=== PATIENT | female | born 1945 | race Caucasian/White ===

== ENCOUNTER 2018-03-04 17:16 | Inpatient (IN) ==
[2018-03-04] MEDS ORDERED: Morphine Sulfate Inj 2 MG/ML Vial IV.PUSH ONE (17:44)
--- NOTE | 2018-03-04 17:49 | ED ---
HPI General Chief Complaint: Fall Stated Complaint: Fall Time Seen by Provider: 03/04/18 17:41 Source: patient Mode of arrival: ambulatory Limitations: no limitations History of Present Illness HPI Narrative: 72-year-old female with PMH of HTN, DM, asthma, CAD status post stenting on Xarelto presents to the ED via EMS for evaluation of 5/10 right hip and elbow pain. Pain is sharp, throbbing, worsened by attempted R OM. No alleviating factors reported. Onset just before arrival after the patient slipped in a puddle of water at a public shower/ pool and fell to the concrete. She denies striking her head or loss of consciousness. She has been minimally ambulatory on the leg since the accident. She denies numbness, tingling, weakness of either extremity. She endorses limitations to range of motion of the hip and elbow secondary to pain. She denies previous injury to either area. The patient is visiting from [place], states that she plans to stay 6 more days. EMS stabilized the elbow but no analgesia was administered prior to arrival. Related Data Home Medications Medication Instructions Recorded Confirmed albuterol sulfate [ProAir HFA] 2 puff INHALATION Q4-6H PRN 03/04/18 03/04/18 aspirin [Aspirin Low Dose] 81 mg PO DAILY 03/04/18 03/04/18 budesonide-formoterol [Symbicort] 2 puff INHALATION BID 03/04/18 03/04/18 diltiazem HCl 120 mg PO DAILY 03/04/18 03/04/18 dulaglutide [Trulicity] 0.75 mg SUB-Q QWEEK 03/04/18 03/04/18 ergocalciferol (vitamin D2) 50,000 unit PO QWEEK 03/04/18 03/04/18 [Vitamin D2] esomeprazole magnesium [Nexium] 20 mg PO DAILY 03/04/18 03/04/18 furosemide [Lasix] 80 mg PO BID 03/04/18 03/04/18 insulin lispro protamin-lispro 65 unit SUB-Q BID 03/04/18 03/04/18 [Humalog Mix 75-25 KwikPen] isosorbide mononitrate 30 mg PO DAILY 03/04/18 03/04/18 losartan 25 mg PO DAILY 08/20/18 08/20/18 multivitamin 1 tab PO DAILY 03/04/18 03/04/18 rivaroxaban [Xarelto] 15 mg PO BID 03/04/18 03/04/18 rosuvastatin [Crestor] 10 mg PO DAILY 03/04/18 03/04/18 Allergies Allergy/AdvReac Type Severity Reaction Status Date / Time lisinopril [From Zestril] Allergy Intermediate Anaphylaxis Verified 03/04/18 17: 25 metoprolol [From Lopressor] Allergy Intermediate Anaphylaxis Verified 03/04/18 17:25 Review of Systems ROS: all other systems reviewed are negative PMFSH History History Provided By: Patient Medical History Medical History HBP (high blood pressure) (Acute) High cholesterol (Acute) History of high cholesterol (Acute) Hx of diabetes mellitus (Acute) Surgical History Surgical History Hx of hand surgery (Acute) Hx of heart bypass surgery (Acute) Hx of heart surgery (Acute) Social History Social History Substance History: No History of Abuse Second Hand Smoke Exposure: No Smoking Status: Never smoker How Often Do You Have a Drink Containing Alcohol: Never Recent Travel in [facility] within the Last 8 Weeks: No Recent Out of Country Travel within the Last 8 Weeks: No Exam Narrative Exam Narrative: GENERAL: Well-developed, well-nourished white female in no acute distress. SKIN: Focused skin assessment warm/dry. HEAD: Atraumatic. Normocephalic. EYES: Pupils equal and round. No scleral icterus. No injection or drainage. ENT: No nasal bleeding or discharge. Mucous membranes pink and moist. NECK: Trachea midline. No JVD. CARDIOVASCULAR: Regular rate and rhythm. No murmur appreciated. RESPIRATORY: No accessory muscle use. Clear to auscultation. Breath sounds equal bilaterally. GASTROINTESTINAL: Abdomen soft, non-tender, nondistended. Hepatic and splenic margins not palpable. MUSCULOSKELETAL: No obvious deformities. No clubbing. No cyanosis. No edema. FOCUSED RIGHT UPPER EXTREMITY EXAM: 2+ radial pulse. No tenderness to palpation of the length of the proximal humerus. Arm is held in 90 flexion in a cardboard splint. Patient is able to wiggle the fingers, Refill less than 2 seconds. Neurovascularly intact distally. FOCUSED RIGHT LOWER EXTREMITY EXAM: 2+ DP pulse. Leg is held in slight external rotation. No length discrepancy noted. Patient is able to wiggle the toes and flex the ankle. Pain elicited with internal and external rotation of the hip. Pain elicited with palpation of the anterior lateral right hip. No groin pain on palpation. Neurovascularly intact distally. NEUROLOGICAL: Awake and alert. No obvious cranial nerve deficits. Motor grossly within normal limits. Normal speech. PSYCHIATRIC: Appropriate mood and affect; insight and judgment normal. Course Initial Documented Vital Signs Temperature 97.7 F 03/04/18 17:35 Pulse Rate 76 03/04/18 17:35 Respiratory Rate 16 03/04/18 17:35 Blood Pressure 156/70 H 03/04/18 17:35 Pulse Oximetry 99 03/04/18 17:35 Last Documented Vital Signs Temperature 97.7 F 03/04/18 17:35 Pulse Rate 76 03/04/18 17:35 Respiratory Rate 16 03/04/18 17:35 Blood Pressure 156/70 H 03/04/18 17:35 Pulse Oximetry 99 03/04/18 17:35 Medical Decision Making MDM Narrative Medical decision making narrative: 72-year-old female with PMH of HTN, DM, CAD status post stenting, on Xarelto presents the ED for evaluation of right shoulder and hip pain after fall onto concrete at a public pool. Vitals reviewed. Physical exam reveals visible deformity of the wrist, neurovascularly intact distally. Patient also has tenderness to palpation of the right anterolateral hip without evidence of length discrepancy and only mild external rotation. X-rays reveals comminuted, impacted fracture of the right wrist. Patient was placed in a splint by the [employer]. X-ray of the hip reveals no evidence of fracture, CT of the hip reveals evidence of right inferior pubic rami fracture. The patient was unable to bear weight when we attempted to ambulate her. I spoke with TREVOR Cuevas construction checker for . He request that the patient be made NPO at midnight. They will discuss surgery with the patient in the AM. I spoke with Dr. Gorman who agrees to accept the patient to the medicine service. Please see medicine and ortho notes for disposition. Medical Screen Exam Complete: Yes Emergency Medical Condition: Yes Differential Diagnosis Differential Diagnosis: Fall from standing versus humeral fracture versus versus hip fracture versus pelvic fracture versus dislocation versus contusion versus other Lab Data Result diagrams: 03/04/18 18:40 03/04/18 18:40 Lab Results 08/20/18 08/20/18 Range/Units 18:40 18:40 WBC 8.1 (4.0-11.0) th/mm3 RBC 3.03 L (4.00-5.30) mil/mm3 Hgb 9.4 L (11.6-15.3) gm/dL Hct 28.7 L (35.0-46.0) % MCV 94.7 (80.0-100.0) fL MCH 31.1 (27.0-34.0) pg MCHC 32.8 (32.0-36.0) % RDW 15.9 (11.6-17.2) % Plt Count 205 (150-450) th/mm3 MPV 7.7 (7.0-11.0) fL Neut % (Auto) 73.3 H (16.0-70.0) % Lymph % (Auto) 17.9 (9.0-44.0) % [place] % (Auto) 7.0 (0.0-8.0) % Eos % (Auto) 1.5 (0.0-4.0) % Baso % (Auto) 0.3 (0.0-2.0) % Neut # (Auto) 5.9 (1.8-7.7) th/mm3 Lymph # (Auto) 1.4 (1.0-4.8) th/mm3 [place] # (Auto) 0.6 (0.0-0.9) th/mm3 Eos # (Auto) 0.1 (0.0-0.4) th/mm3 Baso # (Auto) 0.0 (0.0-0.2) th/mm3 WBC Differential . Differential Comment Auto diff final Sodium 137 (136-145) meq/L Potassium 5.1 (3.5-5.1) meq/L Chloride 102 (98-107) meq/L Carbon Dioxide 25.7 (21.0-32.0) meq/L Anion Gap 9 (5-15) meq/L BUN 23 H (7-18) mg/dL Creatinine 1.23 H (0.50-1.00) mg/dL Estimated GFR 43 L (>89) mL/min Random Glucose 254 H (74-106) mg/dL Calcium 8.5 (8.5-10.1) mg/dL Imaging Data Radiologist's impression: Elbow X-Ray 03/04/18 00:00 CONCLUSION: No evidence of recent bony injury. Hip X-Ray 03/04/18 17:41 CONCLUSION: No evidence of recent bony injury. Wrist X-Ray 03/04/18 18:06 CONCLUSION: Comminuted and angulated distal radial fracture. There is also a displaced fracture of the ulnar styloid. Hip CT 03/04/18 18:43 CONCLUSION: 1. Buckle, 1 cortex fracture of the right inferior pubic ramus. 2. No evidence of fracture in the right hip or right femoral neck. Discharge Plan Discharge Disposition Patient Disposition: 30 Still Patient Discharge Details Diagnosis: Closed fracture of right wrist, Closed fracture of right inferior pubic ramus Physicians Team ED Provider: Bucky Painting ED Midlevel Provider: Antonette Doan Primary Care Provider: UNKNOWN, Rxs /Orders / Referrals /Forms Prescriptions: No Action multivitamin Tablet 1 tab PO DAILY RF: 0 isosorbide mononitrate 30 mg Tablet Extended Release 24 Hr 30 mg PO DAILY RF: 0 aspirin [Aspirin Low Dose] 81 mg Tablet,Delayed Release (Dr/Ec) 81 mg PO DAILY RF: 0 furosemide [Lasix] 80 mg Tablet 80 mg PO BID RF: 0 losartan 25 mg Tablet 25 mg PO DAILY RF: 0 diltiazem HCl 120 mg Capsule,Ext.Rel 24h Degradable 120 mg PO DAILY RF: 0 ergocalciferol (vitamin D2) [Vitamin D2] 50,000 unit Capsule 50,000 unit PO QWEEK RF: 0 albuterol sulfate [ProAir HFA] 90 mcg/actuation Hfa Aerosol Inhaler 2 puff INHALATION Q4-6H PRN (Reason: Rectal Discomfort) RF: 0 esomeprazole magnesium [Nexium] 20 mg Capsule,Delayed Release(Dr/Ec) 20 mg PO DAILY RF: 0 insulin lispro protamin-lispro [Humalog Mix 75-25 KwikPen] 100 unit/mL (75-25 ) Insulin Pen 65 unit SUB-Q BID RF: 0 rosuvastatin [Crestor] 10 mg Tablet 10 mg PO DAILY RF: 0 budesonide-formoterol [Symbicort] 160-4.5 mcg/actuation Hfa Aerosol Inhaler 2 puff INHALATION BID RF: 0 rivaroxaban [Xarelto] 15 mg Tablet 15 mg PO BID RF: 0 dulaglutide [Trulicity] 0.75 mg/0.5 mL Pen Injector 0.75 mg SUB-Q QWEEK RF: 0 Status ED Status: With Doctor
--- NOTE | 2018-03-04 18:39 | XR ---
EXAM DATE: 03/04/2018 6:27 PM EDT AGE/SEX: 72 years / Female INDICATIONS: Right hip pain after slip and fall by pool. CLINICAL DATA: This is the patient's initial encounter. Patient reports that signs and symptoms have been present for 1 day and indicates a pain score of 5/10. MEDICAL/SURGICAL HISTORY: None. . ORIF left femur. COMPARISON: No prior exams available for comparison. FINDINGS: Diffuse osteopenia. Intramedullary hamzah and trochanteric nail in the left femur with a single distal i ntercalated screw. There is heterotopic ossification about the proximal intramedullary hamzah. The shaft of the femur is intact. The hardware is intact. Prominent heterotopic ossification is present about the inferior femoral neck. On the right side, they cortex and trabecular pattern of the femoral neck is intact. Mild degenerativ e changes in the right hip. No fracture seen. The bony pelvic ring is intact. Prominent vascular calc ification in the proximal thigh bilaterally. CONCLUSION: No evidence of recent bony injury. Electronically signed by: Ben Wynne MD 03/04/2018 6:37 PM EDT
--- NOTE | 2018-03-04 18:40 | XR ---
EXAM DATE: 03/04/2018 6:28 PM EDT AGE/SEX: 72 years / Female INDICATIONS: Right wrist pain after slip and fall by pool. CLINICAL DATA: This is the patient's initial encounter. Patient reports that signs and symptoms have been present for 1 day and indicates a pain score of 10/10. MEDICAL/SURGICAL HISTORY: None. None. COMPARISON: No prior exams available for comparison. FINDINGS: There is a comminuted fractures of the distal radius with both a lateral component and longitudinal c omponent. There is moderate angulation of the largest fracture fragment. One of the fracture lines ex tends into the radiocarpal row. There is prominent overriding of the ulna extending 8 mm distal radiu s. There is a mildly displaced fracture of the ulnar styloid. The carpus remains in normal alignment. Vascular calcification in the radial artery. No radiopaque foreign bodies. CONCLUSION: Comminuted and angulated distal radial fracture. There is also a displaced fracture of the ulnar styl oid. Electronically signed by: Ben Wynen MD 03/04/2018 6:39 PM EDT
--- NOTE | 2018-03-04 18:41 | XR ---
EXAM DATE: 03/04/2018 6:33 PM EDT AGE/SEX: 72 years / Female INDICATIONS: Right elbow pain after slip and fall by pool. CLINICAL DATA: This is the patient's initial encounter. Patient reports that signs and symptoms have been present for 1 day and indicates a pain score of 7/10. MEDICAL/SURGICAL HISTORY: None. None. COMPARISON: No prior exams available for comparison. FINDINGS: Bony structures are intact and in normal alignment. Joints are intact without dislocation or signifi cant arthropathy. Osseous density is normal. Soft tissues are unremarkable. No radiopaque foreign bodies seen. Vascular calcification about the antecubital region. CONCLUSION: No evidence of recent bony injury. Electronically signed by: Ben Wynne MD 03/04/2018 6:40 PM EDT
[2018-03-04 19:07] LABS: Baso % (Auto) 0.3 % (0.0-2.0); Eos # (Auto) 0.1 th/mm3 (0.0-0.4); Eos % (Auto) 1.5 % (0.0-4.0); Hematocrit 28.7 % (35.0-46.0); Hemoglobin 9.4 gm/dL (11.6-15.3); Lymph # (Auto) 1.4 th/mm3 (1.0-4.8); Lymph % (Auto) 17.9 % (9.0-44.0); Mean Corpuscular HGB Conc 32.8 % (32.0-36.0); Mean Corpuscular Hemoglobin 31.1 pg (27.0-34.0); Mean Corpuscular Volume 94.7 fL (80.0-100.0); Mean Platelet Volume 7.7 fL (7.0-11.0); Mono # (Auto) 0.6 th/mm3 (0.0-0.9); Neut # (Auto) 5.9 th/mm3 (1.8-7.7); Neut % (Auto) 73.3 % (16.0-70.0); Platelet Count 205 th/mm3 (150-450); Red Blood Count 3.03 mil/mm3 (4.00-5.30); Red Cell Distribution Width 15.9 % (11.6-17.2); White Blood Count 8.1 th/mm3 (4.0-11.0)
[2018-03-04 19:44] LABS: Calcium 8.5 mg/dL (8.5-10.1); Carbon Dioxide 25.7 meq/L (21.0-32.0)
[2018-03-04 19:45] LABS: Potassium 5.1 meq/L (3.5-5.1)
[2018-03-04] MEDS ORDERED: Sod Chloride 0.9% Inj 1,000 ML IV.SIG ONE (20:35)
--- NOTE | 2018-03-04 20:45 | CT ---
EXAM DATE: 03/04/2018 8:25 PM EDT AGE/SEX: 72 years / Female INDICATIONS: Trauma, fall today. CLINICAL DATA: This is the patient's initial encounter. Patient reports that signs and symptoms have been present for 1 day and indicates a pain score of 8/10. MEDICAL/SURGICAL HISTORY: Hypertension. Diabetes. CABG. RADIATION DOSE: 24.10 CTDI (mGy) COMPARISON: [facility], HIP RIGHT W AP PELVIS 2V, 03/04/2018. . TECHNIQUE: Multiple contiguous axial images were acquired using a multirow detector CT scanner witho ut contrast. Multiplanar reconstruction was performed in the sagittal and coronal planes. Using aut omated exposure control and adjustment of the mA and/or kV according to patient size, radiation dose was kept as low as reasonably achievable to obtain optimal diagnostic quality images. DICOM format i mage data is available electronically for review and comparison. FINDINGS: Moderate degenerative changes in the right hip. No fracture seen in the acetabulum, femoral head, or femoral neck. There is a 1 cortex fracture with buckling involving the inferior pubic ramus, best see n on axial image #19. The remainder of the bony pelvic ring is intact. Limited imaging of the pelvis demonstrates mild distention of the urinary bladder with smooth margins and multiple sigmoid divertic yoselyn. No evidence of free fluid in the pelvis. CONCLUSION: 1. Buckle, 1 cortex fracture of the right inferior pubic ramus. 2. No evidence of fracture in the right hip or right femoral neck. Electronically signed by: Ben Wynne MD 03/04/2018 8:44 PM EDT
[2018-03-04] MEDS ORDERED: Dextrose 50% in Water 50 ML Vial IV.PUSH PRN (21:49)
[2018-03-04] MEDS ORDERED: Bisacodyl 10 MG Supp RECTAL PRN (21:50)
--- NOTE | 2018-03-04 22:00 | P.HP ---
History of Present Illness Service: [facility] Primary Care Physician: UNKNOWN History of Present Illness: 72-year-old female with past medical history significant for diabetes mellitus, coronary artery disease status post stent placement and CABG 4, hypertension and hyperlipidemia presents the emergency department for the evaluation of a fall. The patient reports that she slipped in some water and fell onto the ground. She reports pain in her right wrist and in her pelvis. She denies any head trauma or loss of stenosis. No abdominal pain. No nausea/vomiting/ diarrhea. No chest pain or shortness of breath. No fever/chills. Inpatient Certification: I certify that the inpatient services were ordered in accordance with Medicare regulations governing the order. This includes certification that hospital inpatient services are reasonable and necessary and in the case of services not specified as inpatient-only under 42 CFR 419.22(n), that they are appropriately provided as inpatient services in accordance to with the 2-midnight benchmark under 43 CFR 412.3(e) Estimated Total Length of Stay (Days): 2 Plans for Post Hospital Care: Not yet determined Review of Systems All other systems reviewed negative except as stated in [facility]PI [facility] - History History Provided By: Patient - Medical History Medical History: Medical History (Last Updated 03/04/18 @ 21:55 by Adela Gorman MD) CAD (coronary artery disease) H/O: hysterectomy HBP (high blood pressure) High cholesterol History of high cholesterol Hx of diabetes mellitus - Surgical History Surgical History: Surgical History (Last Updated 03/04/18 @ 21:55 by Adela Gorman MD) History of hip surgery History of surgery on arm Hx of hand surgery Hx of heart bypass surgery Hx of heart surgery - Family History Family History: Family History (Last Updated 03/04/18 @ 21:55 by Adela Gorman MD) Other Family history normal - Tobacco History Second Hand Smoke Exposure: No Smoking Status: Never smoker - Alcohol History How Often Do You Have a Drink Containing Alcohol: Never - Substance Use History Substance History: No History of Abuse - Travel History Recent Travel in the [place] Within the Last 8 Weeks: No Recent Travel Out of the Country Within the Last 8 Weeks: No - Immunization History Tetanus Immunization: >5 Years Hx Influenza Vaccine This Season: Yes Medications and Allergies Allergies Allergy/AdvReac Type Severity Reaction Status Date / Time lisinopril [From Zestril] Allergy Intermediate Anaphylaxis Verified 03/04/18 17: 25 metoprolol [From Lopressor] Allergy Intermediate Anaphylaxis Verified 03/04/18 17:25 Home Medications Medication Instructions Recorded Confirmed Type albuterol sulfate [ProAir HFA] 2 puff INHALATION Q4-6H PRN 03/04/18 03/04/18 History aspirin [Aspirin Low Dose] 81 mg PO DAILY 03/04/18 03/04/18 History budesonide-formoterol [Symbicort] 2 puff INHALATION BID 03/04/18 03/04/18 History diltiazem HCl 120 mg PO DAILY 03/04/18 03/04/18 History dulaglutide [Trulicity] 0.75 mg SUB-Q QWEEK 03/04/18 03/04/18 History ergocalciferol (vitamin D2) 50,000 unit PO QWEEK 03/04/18 03/04/18 History [Vitamin D2] esomeprazole magnesium [Nexium] 20 mg PO DAILY 03/04/18 03/04/18 History furosemide [Lasix] 80 mg PO BID 03/04/18 03/04/18 History insulin lispro protamin-lispro 65 unit SUB-Q BID 03/04/18 03/04/18 History [Humalog Mix 75-25 KwikPen] isosorbide mononitrate 30 mg PO DAILY 03/04/18 03/04/18 History losartan 25 mg PO DAILY 03/04/18 03/04/18 History multivitamin 1 tab PO DAILY 03/04/18 03/04/18 History rivaroxaban [Xarelto] 15 mg PO BID 03/04/18 03/04/18 History rosuvastatin [Crestor] 10 mg PO DAILY 03/04/18 03/04/18 History Exam Vital signs: Vital Signs 03/04/18 17:35 Temperature 97.7 F Pulse Rate 76 Respiratory Rate 16 Blood Pressure 156/70 H Pulse Oximetry 99 Intake & Output 03/04/18 03/04/18 03/05/18 06:59 18:59 06:59 Weight 72.575 kg Narrative: Gen.: No acute distress Head: Normocephalic. Atraumatic. EENT: Pupils equal round and reactive to light. Nose without drainage. Airway intact. Throat without injection. Cardiovascular: Regular rate and rhythm. No murmurs, rubs or gallops. Respiratory: Lungs clear to auscultation bilaterally. No wheezes or rhonchi. Abdomen: Soft, nontender, nondistended. No peritoneal signs. Musculoskeletal: Right wrist splinted and wrapped. Able to move all 5 fingers. Neurovascularly intact. Skin: No obvious rashes or erythema. Neuro: Sensory and motor grossly intact. Cranial nerves II through XII grossly intact. Results - Labs CBC & Chem 7: 03/04/18 18:40 03/04/18 18:40 Labs: Laboratory Results - last 24 hr 03/04/18 03/04/18 18:40 18:40 WBC 8.1 RBC 3.03 L Hgb 9.4 L Hct 28.7 L MCV 94.7 MCH 31.1 MCHC 32.8 RDW 15.9 Plt Count 205 MPV 7.7 Neut % (Auto) 73.3 H Lymph % (Auto) 17.9 [place] % (Auto) 7.0 Eos % (Auto) 1.5 Baso % (Auto) 0.3 Neut # (Auto) 5.9 Lymph # (Auto) 1.4 [place] # (Auto) 0.6 Eos # (Auto) 0.1 Baso # (Auto) 0.0 WBC Differential . Differential Comment Auto diff final Sodium 137 Potassium 5.1 Chloride 102 Carbon Dioxide 25.7 Anion Gap 9 BUN 23 H Creatinine 1.23 H Estimated GFR 43 L Random Glucose 254 H Calcium 8.5 - Imaging Impressions Elbow X-Ray 03/04/18 00:00 CONCLUSION: No evidence of recent bony injury. Hip X-Ray 03/04/18 17:41 CONCLUSION: No evidence of recent bony injury. Wrist X-Ray 03/04/18 18:06 CONCLUSION: Comminuted and angulated distal radial fracture. There is also a displaced fracture of the ulnar styloid. Hip CT 03/04/18 18:43 CONCLUSION: 1. Buckle, 1 cortex fracture of the right inferior pubic ramus. 2. No evidence of fracture in the right hip or right femoral neck. Caprini VTE Risk Assessment Caprini VTE Risk Assessment: Moderate/High Risk (score >= 2) Caprini Risk Assessment Model: Point Value = 1 Point Value = 2 Point Value = 3 Point Value = 5 Age 41-60 Minor surgery BMI > 25 kg/m2 Swollen legs Varicose veins or History of unexplained or recurrent spontaneous Oral contraceptives or hormone replacement Sepsis (< 1 month) Serious lung disease, including pneumonia (< 1 month) Abnormal pulmonary function Acute myocardial infarction Congestive heart failure (< 1 month) History of inflammatory bowel disease Medical patient at bed rest Age 61-74 Arthroscopic surgery Major open surgery (> 45 min) Laparoscopic surgery (> 45 min) Malignancy Confined to bed (> 72 hours) Immobilizing plaster cast Central venous access Age >= 75 History of VTE Family history of VTE Factor V Leiden Prothrombin [id number] Lupus anticoagulant Anticardiolipin antibodies Elevated serum homocysteine Heparin-induced thrombocytopenia Other congenital or acquired thrombophilia Stroke (< 1 month) Elective arthroplasty Hip, pelvis, or leg fracture Acute spinal cord injury (< 1 month) Prophylaxis Regimen: Total Risk Factor Score Risk Level Prophylaxis Regimen 0-1 Low Early ambulation 2 Moderate Order ONE of the following: *Sequential Compression Device (SCD) *Heparin 5000 units SQ BID 3-4 Higher Order ONE of the following medications: *Heparin 5000 units SQ TID *Enoxaparin/Lovenox 40 mg SQ daily (WT < 150 kg, CrCl > 30 mL/min) *Enoxaparin/Lovenox 30 mg SQ daily (WT < 150 kg, CrCl > 10-29 mL/min) *Enoxaparin/Lovenox 30 mg SQ BID (WT < 150 kg, CrCl > 30 mL/min) AND/OR *Sequential Compression Device (SCD) 5 or more Highest Order ONE of the following medications: *Heparin 5000 units SQ TID (Preferred with Epidurals) *Enoxaparin/Lovenox 40 mg SQ daily (WT < 150 kg, CrCl > 30 mL/min) *Enoxaparin/Lovenox 30 mg SQ daily (WT < 150 kg, CrCl > 10-29 mL/min) *Enoxaparin/Lovenox 30 mg SQ BID (WT < 150 kg, CrCl > 30 mL/min) AND *Sequential Compression Device (SCD) Assessment and Plan - Plan Assessment/plan: 1. Right wrist fracture Right wrist x-ray significant for comminuted and angulated distal radial fracture Orthopedic surgery consulted, appreciate recommendations Morphine for pain 2. Pubic rami fracture Physical therapy consulted, appreciate assistance 3. Diabetes mellitus Holding home insulin as patient n.p.o. Sliding-scale insulin Monitor blood glucose 4. Hypertension/hyperlipidemia Continue home medications 5. Coronary artery disease Patient is status post stent placement and CABG 4 Reports she is on Xarelto for her stents Holding Xarelto in anticipation of possible operative intervention 6. AK I Creatinine 1.23, baseline unknown IV fluid hydration Monitor renal function FEN N.p.o. Electrolytes: Replete as needed NS at 100 cc/hour Holding pharmacologic anticoagulation for possible operative intervention
[2018-03-04] MEDS: Morphine Inj 4 MG/ML Vial IV.PUSH PRN (23:12)
[2018-03-05] MEDS: Sod Chloride 0.9% Inj 1,000 ML IV.CONT SCH ×3 (01:22→19:33)
[2018-03-05] MEDS: Morphine Inj 4 MG/ML Vial IV.PUSH PRN (03:28)
[2018-03-05] MEDS: Insulin NovoLOG Aspart Correctional Sugar Inj SQ SCH ×5 (03:35→21:18)
[2018-03-05] MEDS ORDERED: Chlorhexidine Gluconate 2% 1 Pack (2 Cloths) TOPICAL SCH (05:15)
[2018-03-05] MEDS ORDERED: Sodium Chlor 0.9% Inj 500 ML IV.SIG SCH (06:00)
--- NOTE | 2018-03-05 07:02 | P.PNOP ---
Subjective Interval history: patient fell while on vacation here in [facility]. reports right wrist pain and pelvic pain. from [place] Physical Exam Vital signs: Vital Signs 03/04/18 17:35 03/04/18 21:00 03/05/18 00:00 Temperature 97.7 F 98.2 F Pulse Rate 76 72 79 Respiratory Rate 16 18 17 Blood Pressure 156/70 H 148/74 H 168/74 H Pulse Oximetry 99 98 94 L 03/05/18 04:00 Temperature 98.6 F Pulse Rate 75 Respiratory Rate 18 Blood Pressure 167/72 H Pulse Oximetry 96 Intake & Output 03/04/18 03/05/18 03/05/18 18:59 06:59 18:59 Intake Total 0 / 0 Balance 0 / 0 Weight 72.575 kg 75 kg Intake: IV 0 / 0 NS Inj 1,000 ML @ Wide Open IV. 0 / 0 SIG BOLUS ONE Rx#:[id number] Other: # Voids 2 Date of Last Bowel Movement 03/04/18 Weight On Admission 74.642 kg Narrative: RUE: +sugar tong splint. intact. NVI Results - Labs CBC & Chem 7: 03/04/18 18:40 03/04/18 18:40 Laboratory Results - last 24 hr 03/04/18 03/04/18 03/05/18 18:40 18:40 03:33 WBC 8.1 RBC 3.03 L Hgb 9.4 L Hct 28.7 L MCV 94.7 MCH 31.1 MCHC 32.8 RDW 15.9 Plt Count 205 MPV 7.7 Neut % (Auto) 73.3 H Lymph % (Auto) 17.9 [place] % (Auto) 7.0 Eos % (Auto) 1.5 Baso % (Auto) 0.3 Neut # (Auto) 5.9 Lymph # (Auto) 1.4 [place] # (Auto) 0.6 Eos # (Auto) 0.1 Baso # (Auto) 0.0 WBC Differential . Differential Comment Auto diff final Sodium 137 Potassium 5.1 Chloride 102 Carbon Dioxide 25.7 Anion Gap 9 BUN 23 H Creatinine 1.23 H Estimated GFR 43 L POC Glucose 140 H Random Glucose 254 H Calcium 8.5 - Imaging Impressions Elbow X-Ray 03/04/18 00:00 CONCLUSION: No evidence of recent bony injury. Hip X-Ray 03/04/18 17:41 CONCLUSION: No evidence of recent bony injury. Wrist X-Ray 03/04/18 18:06 CONCLUSION: Comminuted and angulated distal radial fracture. There is also a displaced fracture of the ulnar styloid. Hip CT 03/04/18 18:43 CONCLUSION: 1. Buckle, 1 cortex fracture of the right inferior pubic ramus. 2. No evidence of fracture in the right hip or right femoral neck. Assessment and Plan - Assessment and Plan 1) Right Distal Radius Fx 2) Right Inferior Rami fx Patient has suffered a right wrist fracture and right pelvic fracture. The pelvic fracture is nonoperative. However, the wrist fracture would benefit her from having surgical fixation. It is not necessarily imperative that she have it fixed at this time. I informed her that if she would like to return to [place] to have it fixed at home but this is certainly reasonable. She would like to discuss this with her . She will let us know which way she would like to proceed today. If she decides that she does not want to proceed with surgery today, then she may resume her diet and be orthopedically cleared for discharge. She can fully weight-bear on her bilateral legs. She will remain nonweightbearing wrist. She needs to follow-up with an orthopedist at home within the next week if she decides to wait for surgery.
[2018-03-05] MEDS ORDERED: Bupivacaine/Epinephrine PF Inj 0.25% 10 ML Vial ONE (08:08)
[2018-03-05 09:27] LABS: Baso % (Auto) 0.4 % (0.0-2.0); Eos # (Auto) 0.2 th/mm3 (0.0-0.4); Eos % (Auto) 2.5 % (0.0-4.0); Hematocrit 29.7 % (35.0-46.0); Hemoglobin 9.9 gm/dL (11.6-15.3); Lymph # (Auto) 1.4 th/mm3 (1.0-4.8); Lymph % (Auto) 17.3 % (9.0-44.0); Mean Corpuscular HGB Conc 33.3 % (32.0-36.0); Mean Corpuscular Hemoglobin 31.6 pg (27.0-34.0); Mean Corpuscular Volume 94.9 fL (80.0-100.0); Mean Platelet Volume 7.2 fL (7.0-11.0); Mono # (Auto) 0.7 th/mm3 (0.0-0.9); Mono % (Auto) 8.9 % (0.0-8.0); Neut # (Auto) 5.9 th/mm3 (1.8-7.7); Neut % (Auto) 70.9 % (16.0-70.0); Platelet Count 197 th/mm3 (150-450); Red Blood Count 3.13 mil/mm3 (4.00-5.30); Red Cell Distribution Width 15.9 % (11.6-17.2); White Blood Count 8.3 th/mm3 (4.0-11.0)
[2018-03-05 09:48] LABS: Calcium 8.6 mg/dL (8.5-10.1); Carbon Dioxide 25.6 meq/L (21.0-32.0); Potassium 3.7 meq/L (3.5-5.1)
--- NOTE | 2018-03-05 10:52 | P.OP ---
- Preoperative Diagnosis (1) Closed fracture of right wrist Date of procedure: 03/05/18 Procedure: Open reduction internal fixation right distal radius Anesthesia: GETA Surgeon: Los Anguiano MD Extractor Loader And Unloader: ASIA Cuevas PA-C The surgical procedure was assisted by my physician registered nurse first assistant. My P.A. presence was necessary throughout this case for the manipulation and positioning of the surgical extremity. My P.A. was assisting me throughout the duration of this procedure. The skill set of a physician registered nurse first assistant was medically necessary to complete this procedure. During the surgical case the surgical lead was working at the back table and the physician registered nurse first assistant was directly assisting me. Operation and Findings: Implants used: ITS Plan of activity: Nonweightbearing Details of procedure: Patient was seen and evaluated preoperatively and found to have a displaced right distal radius fracture. Informed consent was obtained after detailed discussion of risk and benefits including bleeding, infection, injury to arteries, nerves, and blood vessels, weakness and numbness of hand, and tendon rupture. Informed consent was obtained. Patient received IV antibiotics prior to incision. Timeout procedure was performed. Operative extremity was prepped with alcohol followed by Hibiclens and draped usual sterile fashion. A standard volar approach to the distal radius was utilized. A 3 inch incision was made over the FCR tendon. Tendon sheath was opened. Pronator quadratus was elevated up. The fracture site was now visualized. The fracture did have intra-articular extension. Traction was applied. The articular surface was reduced. Fracture fragments were manipulated to achieve excellent reduction. K wires were used to hold provisional fixation. Fluoroscopy confirmed appropriate alignment of fracture. A variable angle distal radius plate was selected. Plate was provisionally fixed to bone with K wires. 2.7 and 2.4 cortical screws were used to compress plate to bone. Fluoroscopy confirmed appropriate alignment of fracture with well-placed hardware. Multiple 2.4 locking screws were now placed distally. Screws were predrilled and measured for appropriate length. 2 additional screws were placed into the shaft. K wires were removed. Final fluoroscopy revealed excellent of fracture with well- placed hardware. The wound was thoroughly irrigated with sterile saline. Subcutaneous tissue was closed with 3-0 Vicryl and skin was closed with 3-0 nylon. Sterile dressings were applied with Xeroform, 4 x 4, soft roll, and a well padded volar splint. Patient was awakened and transferred to recovery room in stable condition
[2018-03-05] MEDS ORDERED: fentaNYL Citrate Inj 100 MCG/2 ML Ampul ONE (11:06)
--- NOTE | 2018-03-05 11:15 | P.CONOP ---
[facility] Orthopedics Consult Note - [facility] Consult date: 03/05/18 Chief complaint: Right Wrist Fracture, Right Pubic Rami Fracture Narrative: Peter is a pleasant 72-year-old female. She presents complaining of right- sided wrist pain and pelvic pain. She is visiting [facility] from the [place] area. She lives just outside of [place]. She describes a mechanical fall. She landed on her right side. She had immediate right wrist pain and pelvic pain. She had some difficulty standing or any bleeding. Her pain is worse with movement of her wrist or weightbearing. She is currently awake on the orthopedic floor. She denies dizziness, syncope, or loss of consciousness. Pain is improved with rest. She denies any wrist pain prior to her fall. Review of Systems Patient denies fevers, chills, weight loss, headache, visual changes, hearing loss, chest pain, palpitations, shortness of breath, nausea, vomiting, no urinary changes, diarrhea, bowel changes, neck pain, back pain, skin rashes, weakness of extremities, easy bleeding, enlarged lymph nodes, numbness of extremities, anxiety, or depression. She complains of right wrist pain and pelvic pain. All other systems reviewed negative except as stated in [facility] - History History Provided By: Patient - Medical History Medical History: Medical History (Last Reviewed 03/05/18 @ 08:34 by Kalina Fried) CAD (coronary artery disease) H/O: hysterectomy HBP (high blood pressure) High cholesterol History of high cholesterol Hx of diabetes mellitus - Surgical History Surgical History: Surgical History (Last Reviewed 03/05/18 @ 08:34 by Kalina Fried) History of hip surgery History of surgery on arm Hx of hand surgery Hx of heart bypass surgery Hx of heart surgery - Family History Family History: Family History (Last Updated 03/04/18 @ 21:55 by Adela Gorman MD) Other Family history normal - Tobacco History Second Hand Smoke Exposure: No Smoking Status: Never smoker - Alcohol History How Often Do You Have a Drink Containing Alcohol: Never - Substance Use History Substance History: No History of Abuse - Travel History Recent Travel in the [place] Within the Last 8 Weeks: No Recent Travel Out of the Country Within the Last 8 Weeks: No - Immunization History Tetanus Immunization: >5 Years Hx Influenza Vaccine This Season: Yes Medications and Allergies Active Medications: Active Medications Acetaminophen (Tylenol) 650 mg PO Q4H PRN PRN Reason: Temp > 100.4 Hydrocodone Bitart/Acetaminophen ([place] 7.5/325) 1 tab PO Q3H PRN PRN Reason: Pain Scale 3 to 10 Al Hydroxide/Mg Hydroxide (Milk Of Magnesia Liq) 30 ml PO Q12H PRN PRN Reason: Mild Constipation Atorvastatin Calcium (Lipitor) 20 mg PO DAILY [facility] Bisacodyl (Dulcolax Supp) 10 mg RECTAL DAILY PRN PRN Reason: SEVERE CONSITIPATION Budesonide/Formoterol Fumarate (Symbicort 160/4.5 Mcg Inh) 2 puff INH BID [facility] Chlorhexidine Gluconate (Chlorhexidine 2% Cloth) 3 pack TOPICAL OR SCRUB TECH [facility] Stop: 03/08/18 05:06 Dextrose (D50w Vial) 50 ml IV.PUSH UNSCH PRN PRN Reason: PER HYPOGLYCEMIA PROTOCOL Diltiazem HCl (Cardizem Cd 24hr) 120 mg PO DAILY [facility] Furosemide (Lasix) 80 mg PO BID ANA Glucagon (Glucagon Inj) 1 mg OTHER PRN PRN PRN Reason: for Hypoglycemia Protocol Sodium Chloride (Ns Inj) 1,000 mls @ 100 mls/hr IV.CONT .Q10H [facility] Last Admin: 03/05/18 01:22 Dose: Not Given Lactated Ringer's (Lr 1000 Ml Inj) 1,000 mls @ 30 mls/hr IV.SIG .Q24H ANA Stop: 03/08/18 05:06 Last Admin: 03/05/18 06:17 Dose: 30 mls/hr Sodium Chloride (Ns Inj) 500 mls @ 30 mls/hr IV.SIG .Q10H ANA Stop: 03/08/18 05:06 Insulin Aspart (Novolog Insulin Correctional Sugar Inj) 0 unit SQ ACHS AND 3AM ANA; Protocol Last Admin: 03/05/18 03:35 Dose: Not Given Isosorbide Mononitrate (Imdur) 30 mg PO DAILY [facility] Lactulose (Lactulose Liq) 30 ml PO DAILY PRN PRN Reason: SEVERE CONSITIPATION Losartan Potassium (Cozaar) 25 mg PO DAILY [facility] Morphine Sulfate (Morphine Inj) 4 mg IV.PUSH Q4H PRN PRN Reason: pain 6-10 Last Admin: 03/05/18 03:28 Dose: 4 mg Ondansetron HCl (Zofran Inj) 4 mg IV.PUSH Q6H PRN PRN Reason: NAUSEA OR VOMITING Povidone Iodine (Betadine 5% Antisepsis Kit) 1 applicatio EACH NARE OR SCRUB TECH [facility] Stop: 03/08/18 05:06 Senna/Docusate Sodium (Juli-Colace) 1 tab PO BID [facility] Sennosides (Senokot) 17.2 mg PO Q12H PRN PRN Reason: Moderate Constipation Allergies Allergy/AdvReac Type Severity Reaction Status Date / Time lisinopril [From Zestril] Allergy Intermediate Anaphylaxis Verified 03/04/18 17: 25 metoprolol [From Lopressor] Allergy Intermediate Anaphylaxis Verified 03/04/18 17:25 Home Medications Medication Instructions Recorded Confirmed Type albuterol sulfate [ProAir HFA] 2 puff INHALATION Q4-6H PRN 03/04/18 03/04/18 History aspirin [Aspirin Low Dose] 81 mg PO DAILY 03/04/18 03/04/18 History budesonide-formoterol [Symbicort] 2 puff INHALATION BID 03/04/18 03/04/18 History diltiazem HCl 120 mg PO DAILY 03/04/18 03/04/18 History dulaglutide [Trulicity] 0.75 mg SUB-Q QWEEK 03/04/18 03/04/18 History ergocalciferol (vitamin D2) 50,000 unit PO QWEEK 03/04/18 03/04/18 History [Vitamin D2] esomeprazole magnesium [Nexium] 20 mg PO DAILY 03/04/18 03/04/18 History furosemide [Lasix] 80 mg PO BID 03/04/18 03/04/18 History insulin lispro protamin-lispro 65 unit SUB-Q BID 03/04/18 03/04/18 History [Humalog Mix 75-25 KwikPen] isosorbide mononitrate 30 mg PO DAILY 03/04/18 03/04/18 History losartan 25 mg PO DAILY 03/04/18 03/04/18 History multivitamin 1 tab PO DAILY 03/04/18 03/04/18 History rivaroxaban [Xarelto] 15 mg PO BID 03/04/18 03/04/18 History rosuvastatin [Crestor] 10 mg PO DAILY 03/04/18 03/04/18 History Exam Vital signs: Vital Signs 03/04/18 17:35 03/04/18 21:00 03/05/18 00:00 Temperature 97.7 F 98.2 F Pulse Rate 76 72 79 Respiratory Rate 16 18 17 Blood Pressure 156/70 H 148/74 H 168/74 H Pulse Oximetry 99 98 94 L 03/05/18 04:00 03/05/18 08:00 Temperature 98.6 F 98 F Pulse Rate 75 80 Respiratory Rate 18 18 Blood Pressure 167/72 H 165/72 H Pulse Oximetry 96 99 Intake & Output 03/04/18 03/05/18 03/05/18 18:59 06:59 18:59 Intake Total 0 / 0 1000 / 1000 Output Total 25 / 25 Balance 0 / 0 975 / 975 Weight 72.575 kg 75 kg Intake: IV 0 / 0 NS Inj 1,000 ML @ Wide Open IV. 0 / 0 SIG BOLUS ONE Rx#:[id number] Anesthesia Amount 1000 / 1000 Output: Estimated Blood Loss Other: # Voids 2 Date of Last Bowel Movement 03/04/18 Weight On Admission 74.642 kg Narrative: Peter is a pleasant 72-year-old female. She is awake and alert. She is mildly overweight. She is alert and oriented 3. General: Awake and alert. No acute distress. Appears well-developed well- nourished Head: Normocephalic, atraumatic pupils are equal Neck: Soft, nontender, trachea midline Abdomen: Soft, nondistended Examination right arm reveals no pain with shoulder or elbow. She is tender to palpation of the distal radius. There is mild deformity visible of the distal radius. Skin is intact. Radial pulse is palpable. Sensation is intact in all fingers. She has pain with any wrist motion. Examination of left arm reveals no pain or deformity with shoulder, elbow, or wrist motion. Skin is intact. Radial pulse is palpable. Normal capillary refill in fingers. Sensation is intact in radial, ulnar, and median nerve distributions. Cdl Program Coordinator strength is +5 bilaterally. No lymphadenopathy noted. Examination of bilateral lower extremities reveals no pain or deformity with hip , knee, or ankle motion. Skin is intact. Sensation is intact in both feet. Dorsalis pedis pulses are palpable. Normal capillary refill and feet. Thigh and calf compartments are soft. No lymphadenopathy noted. +5 strength of ankle dorsiflexion and plantarflexion. Examination of pelvis reveals mild tenderness over her pubic rami. She has some pain with compression of her pelvis. Results - Labs Result Diagrams: 03/05/18 09:09 03/05/18 09:09 Labs: Laboratory Results - last 24 hr 03/04/18 03/04/18 03/05/18 18:40 18:40 03:33 WBC 8.1 RBC 3.03 L Hgb 9.4 L Hct 28.7 L MCV 94.7 MCH 31.1 MCHC 32.8 RDW 15.9 Plt Count 205 MPV 7.7 Neut % (Auto) 73.3 H Lymph % (Auto) 17.9 [place] % (Auto) 7.0 Eos % (Auto) 1.5 Baso % (Auto) 0.3 Neut # (Auto) 5.9 Lymph # (Auto) 1.4 [place] # (Auto) 0.6 Eos # (Auto) 0.1 Baso # (Auto) 0.0 WBC Differential . Differential Comment Auto diff final Sodium 137 Potassium 5.1 Chloride 102 Carbon Dioxide 25.7 Anion Gap 9 BUN 23 H Creatinine 1.23 H Estimated GFR 43 L POC Glucose 140 H Random Glucose 254 H Calcium 8.5 03/05/18 03/05/18 03/05/18 07:48 09:09 09:09 WBC 8.3 RBC 3.13 L Hgb 9.9 L Hct 29.7 L MCV 94.9 MCH 31.6 MCHC 33.3 RDW 15.9 Plt Count 197 MPV 7.2 Neut % (Auto) 70.9 H Lymph % (Auto) 17.3 [place] % (Auto) 8.9 H Eos % (Auto) 2.5 Baso % (Auto) 0.4 Neut # (Auto) 5.9 Lymph # (Auto) 1.4 [place] # (Auto) 0.7 Eos # (Auto) 0.2 Baso # (Auto) 0.0 WBC Differential . Differential Comment Auto diff final Sodium 141 Potassium 3.7 D Chloride 106 Carbon Dioxide 25.6 Anion Gap 9 BUN 14 Creatinine 0.87 Estimated GFR 64 L POC Glucose 139 H Random Glucose 153 H D Calcium 8.6 - Diagnostic results Imaging: Impressions Elbow X-Ray 03/04/18 00:00 CONCLUSION: No evidence of recent bony injury. Hip X-Ray 03/04/18 17:41 CONCLUSION: No evidence of recent bony injury. Wrist X-Ray 03/04/18 18:06 CONCLUSION: Comminuted and angulated distal radial fracture. There is also a displaced fracture of the ulnar styloid. Hip CT 03/04/18 18:43 CONCLUSION: 1. Buckle, 1 cortex fracture of the right inferior pubic ramus. 2. No evidence of fracture in the right hip or right femoral neck. Wrist/Hand x-ray: report reviewed, image reviewed Assessment and Plan - Problem List (1) Closed fracture of right wrist Code(s): S62.101A - Fracture of unspecified carpal bone, right wrist, initial encounter for closed fracture Status: Acute Qualifiers: Encounter type: initial encounter Qualified Code(s): S62.101A - Fracture of unspecified carpal bone, right wrist, initial encounter for closed fracture (2) Closed fracture of right inferior pubic ramus Code(s): S32.591A - Other specified fracture of right pubis, initial encounter for closed fracture Status: Acute Qualifiers: Encounter type: initial encounter Qualified Code(s): S32.591A - Other specified fracture of right pubis, initial encounter for closed fracture - Assessment and Plan 1) Right Distal Radius Fx 2) Right Inferior Rami fx 3) diabetes Patient has suffered a right wrist fracture and right pelvic fracture from a fall. I would recommend nonsurgical treatment of the pelvic fracture. However , the wrist fracture would benefit her from having surgical fixation. The risk and benefits of surgery were discussed in depth with patient. The risk and benefits of surgery were discussed in depth with patient. The risk of surgery include bleeding, infection, wrist stiffness, wrist arthritis, tendon rupture, injuries to arteries, nerves, or blood vessels, infection, wound complications, nonunion, malunion, painful hardware, and need for further surgery. I also discussed medical complications including blood clots, pneumonia, stroke, heart attack, and . Informed consent was obtained and all questions were answered. Patient will need to follow-up with an orthopedic surgeon in [place] in 2 weeks for follow-up of fracture Nonweightbearing right arm Weight-bear as tolerated bilateral legs Calcium and vitamin D supplementation
[2018-03-05] MEDS ORDERED: Sodium Chlor 0.9% Inj 250 ML IV.SIG ONE (12:00)
[2018-03-05] MEDS ORDERED: Lidocaine PF 1% Inj 5 ML Syringe INFILTRATN ONE (12:00)
[2018-03-05 14:06] LABS: Activated Partial Thrombo Time 24.4 sec (24.3-30.1); Prothrombin Time 10.6 sec (9.8-11.6)
--- NOTE | 2018-03-05 14:23 | P.PN ---
Subjective Interval history: Follow-up visit for right wrist fracture, pubic rami fracture, DM, HTN, and VALENTÍN. Nurse reports patient requiring significant amount of assistance today to mobilize her out of bed. History of left hip surgery, left arm surgery and underwent ORIF of right distal radius this morning. Patient also complaining of left knee pain and edema. Patient seen and examined sitting up in recliner with family at bedside. Reports left knee pain which began this morning along with swelling, denies any surgical history on her left knee, denies history of gout. Patient reports pain is increased with movement and weightbearing. She denies any fevers, chills, nausea, vomiting, diarrhea, cough, shortness of breath or chest pain. Physical Exam Vital signs: Vital Signs 03/04/18 17:35 03/04/18 21:00 03/05/18 00:00 Temperature 97.7 F 98.2 F Pulse Rate 76 72 79 Respiratory Rate 16 18 17 Blood Pressure 156/70 H 148/74 H 168/74 H Pulse Oximetry 99 98 94 L 03/05/18 04:00 03/05/18 08:00 03/05/18 11:05 Temperature 98.6 F 98 F 98.0 F Pulse Rate 75 80 73 Respiratory Rate 18 18 Blood Pressure 167/72 H 165/72 H 158/69 H Pulse Oximetry 96 99 100 03/05/18 11:20 03/05/18 11:39 03/05/18 12:00 Temperature 98.1 F Pulse Rate 74 74 78 Respiratory Rate 18 Blood Pressure 164/70 H 162/72 H 172/72 H Pulse Oximetry 96 94 L 95 Intake & Output 03/04/18 03/05/18 03/05/18 18:59 06:59 18:59 Intake Total 0 / 0 1000 / 1000 Output Total 25 / 25 Balance 0 / 0 975 / 975 Weight 72.575 kg 75 kg Intake: IV 0 / 0 NS Inj 1,000 ML @ Wide Open IV. 0 / 0 SIG BOLUS ONE Rx#:[id number] Anesthesia Amount 1000 / 1000 Output: Estimated Blood Loss 25 / 25 Other: # Voids 2 Date of Last Bowel Movement 03/04/18 03/04/18 Weight On Admission 74.642 kg Narrative: General: Well-developed, well-nourished female sitting up in bed, right arm in sling. Head: Normocephalic. Atraumatic. EENT: Pupils equal round and reactive to light. Nose without drainage. Airway intact. Cardiovascular: Regular rate and rhythm. No murmurs, rubs or gallops. Respiratory: Lungs clear to auscultation bilaterally. No wheezes or rhonchi. Abdomen: Soft, nontender, nondistended. Positive bowel sounds. Musculoskeletal: Right wrist splinted and forearm wrapped. Able to move all 5 fingers, normal sensation, capillary refill less than 3 seconds. Left knee decreased range of motion, edema noted, no warmth or erythema. Skin: No obvious rashes or erythema. Neuro: Sensory and motor grossly intact. Cranial nerves II through XII grossly intact. Results - Labs CBC & Chem 7: 03/05/18 09:09 03/05/18 09:09 Laboratory Results - last 24 hr 03/04/18 03/04/18 03/05/18 18:40 18:40 03:33 WBC 8.1 RBC 3.03 L Hgb 9.4 L Hct 28.7 L MCV 94.7 MCH 31.1 MCHC 32.8 RDW 15.9 Plt Count 205 MPV 7.7 Neut % (Auto) 73.3 H Lymph % (Auto) 17.9 [place] % (Auto) 7.0 Eos % (Auto) 1.5 Baso % (Auto) 0.3 Neut # (Auto) 5.9 Lymph # (Auto) 1.4 [place] # (Auto) 0.6 Eos # (Auto) 0.1 Baso # (Auto) 0.0 WBC Differential . Differential Comment Auto diff final PT INR APTT Sodium 137 Potassium 5.1 Chloride 102 Carbon Dioxide 25.7 Anion Gap 9 BUN 23 H Creatinine 1.23 H Estimated GFR 43 L POC Glucose 140 H Random Glucose 254 H Calcium 8.5 03/05/18 03/05/18 03/05/18 07:48 09:09 09:09 WBC 8.3 RBC 3.13 L Hgb 9.9 L Hct 29.7 L MCV 94.9 MCH 31.6 MCHC 33.3 RDW 15.9 Plt Count 197 MPV 7.2 Neut % (Auto) 70.9 H Lymph % (Auto) 17.3 [place] % (Auto) 8.9 H Eos % (Auto) 2.5 Baso % (Auto) 0.4 Neut # (Auto) 5.9 Lymph # (Auto) 1.4 [place] # (Auto) 0.7 Eos # (Auto) 0.2 Baso # (Auto) 0.0 WBC Differential . Differential Comment Auto diff final PT INR APTT Sodium 141 Potassium 3.7 D Chloride 106 Carbon Dioxide 25.6 Anion Gap 9 BUN 14 Creatinine 0.87 Estimated GFR 64 L POC Glucose 139 H Random Glucose 153 H D Calcium 8.6 03/05/18 03/05/18 11:16 13:16 WBC RBC Hgb Hct MCV MCH MCHC RDW Plt Count MPV Neut % (Auto) Lymph % (Auto) [place] % (Auto) Eos % (Auto) Baso % (Auto) Neut # (Auto) Lymph # (Auto) [place] # (Auto) Eos # (Auto) Baso # (Auto) WBC Differential Differential Comment PT 10.6 INR 1.0 APTT 24.4 Sodium Potassium Chloride Carbon Dioxide Anion Gap BUN Creatinine Estimated GFR POC Glucose 175 H Random Glucose Calcium - Imaging Impressions Elbow X-Ray 03/04/18 00:00 CONCLUSION: No evidence of recent bony injury. Hip X-Ray 03/04/18 17:41 CONCLUSION: No evidence of recent bony injury. Wrist X-Ray 03/04/18 18:06 CONCLUSION: Comminuted and angulated distal radial fracture. There is also a displaced fracture of the ulnar styloid. Hip CT 03/04/18 18:43 CONCLUSION: 1. Buckle, 1 cortex fracture of the right inferior pubic ramus. 2. No evidence of fracture in the right hip or right femoral neck. Assessment and Plan - Plan Right wrist fracture -Right wrist x-ray significant for comminuted and angulated distal radial fracture -Orthopedic surgery consulted, appreciate recommendations - s/p open reduction internal fixation of right distal radius 03/[address] Eric -Control with p.o. [place] and IV morphine. Pubic rami fracture -Nonoperable - Physical therapy consulted, appreciate assistance Diabetes mellitus -Diabetic diet Sliding-scale insulin Monitor blood glucose Hypertension/hyperlipidemia Continue home medications Coronary artery disease Patient is status post stent placement and CABG 4 Reports she is on Xarelto for her stents Holding Xarelto possibly resume tomorrow as long as ok with surgery 6. AK I, resolved Creatinine 1.23, baseline unknown s/p IV hydration, and improved to 0.87, BUN 14, GFR 64 Monitor renal function Left knee pain/edema -Knee x-ray with slight osteopenia -Patient denies any history of gout, pain control with [place], ice pack, PT, continue to monitor. DVT prophylaxis-SCDs, hopefully will be able to resume Xarelto tomorrow Discussed Condition With: Discussed with patient, RN, family at bedside.
--- NOTE | 2018-03-05 15:02 | XR ---
EXAM DATE: 03/05/2018 2:29 PM EDT AGE/SEX: 72 years / Female INDICATIONS: Right wrist open reduction internal fixation. CLINICAL DATA: This is the patient's initial encounter. Patient reports that signs and symptoms have been present for 1 day and indicates a pain score of Nonresponsive. MEDICAL/SURGICAL HISTORY: None. None. COMPARISON: No prior exams available for comparison. FINDINGS: Side plate and multiple screws traverse the distal radius with excellent anatomical alignm ent of the bony structures. CONCLUSION: Intact postsurgical changes for technique. Electronically signed by: Terry Varma MD 03/05/2018 3:00 PM EDT
[2018-03-05] MEDS: Isosorbide Mononitrate 30 MG ER 24HR Tablet (Imdur) PO SCH (16:22)
[2018-03-05] MEDS: dilTIAZem CD 120 MG Capsule PO SCH (16:22)
[2018-03-05] MEDS: Furosemide 80 MG Tablet PO SCH ×2 (16:23→21:00)
[2018-03-05] MEDS: Senna/Docusate Sodium 8.6/50 MG Tablet PO SCH ×2 (16:23→21:00)
[2018-03-05] MEDS: Budesonide-Formoterol 160/4.5 MCG 6 GM Inhaler INH SCH ×2 (16:23→21:00)
--- NOTE | 2018-03-05 16:39 | XR ---
EXAM DATE: 03/05/2018 3:48 PM EDT AGE/SEX: 72 years / Female INDICATIONS: Left knee pain and swelling after slip and fall. CLINICAL DATA: This is the patient's initial encounter. Patient reports that signs and symptoms have been present for 2 days and indicates a pain score of 8/10. MEDICAL/SURGICAL HISTORY: None. . ORIF left femur. COMPARISON: No prior exams available for comparison. FINDINGS: No definite fractures, or dislocations are identified. No definite lytic or sclerotic les ion is seen. Slight osteopenia is seen. Intramedullary hamzah is present traversing the femur with dist al fixation screw. There is excellent anatomical alignment of the bony structures. CONCLUSION: Slight osteopenia. Electronically signed by: Terry Varma MD 03/05/2018 4:37 PM EDT
--- NOTE | 2018-03-05 19:33 | ECG ---
Date Performed: 03/05/2018 Time Performed: 01:51:36 PTAGE: 72 years EKG: Sinus rhythm Right bundle branch block Lateral ST-T changes are nonspecific Abnormal ECG NO PREVIOUS TRACING DOCTOR: Kelby Barrios Interpretating Date/Time 03/05/2018 19:31:03
[2018-03-06] MEDS: Insulin NovoLOG Aspart Correctional Sugar Inj SQ SCH ×5 (04:16→22:22)
[2018-03-06] MEDS: Sod Chloride 0.9% Inj 1,000 ML IV.CONT SCH ×2 (06:38→18:21)
--- NOTE | 2018-03-06 06:48 | P.PNOP ---
Subjective Interval history: Continuing to improve. Continues to have pain in left knee. X-rays were negative yesterday for fracture or dislocation Physical Exam Vital signs: Vital Signs 03/05/18 08:00 03/05/18 11:05 03/05/18 11:20 Temperature 98 F 98.0 F Pulse Rate 80 73 74 Respiratory Rate 18 Blood Pressure 165/72 H 158/69 H 164/70 H Pulse Oximetry 99 100 96 03/05/18 11:39 03/05/18 12:00 03/05/18 16:00 Temperature 98.1 F 98.4 F Pulse Rate 74 78 75 Respiratory Rate 18 18 Blood Pressure 162/72 H 172/72 H 174/79 H Pulse Oximetry 94 L 95 99 03/05/18 19:32 03/05/18 20:00 03/06/18 00:00 Temperature 98.5 F 97.9 F Pulse Rate 87 80 Respiratory Rate 18 17 17 Blood Pressure 184/75 H 144/67 H Pulse Oximetry 97 94 L 03/06/18 00:10 03/06/18 04:00 Temperature 98.3 F Pulse Rate 79 92 H Respiratory Rate 17 Blood Pressure 156/81 H Pulse Oximetry 97 Intake & Output 03/05/18 03/05/18 03/06/18 06:59 18:59 06:59 Intake Total 0 / 0 1480 / 1480 480 / 480 Output Total 25 / 25 Balance 0 / 0 1455 / 1455 480 / 480 Weight 75 kg Intake: IV 0 / 0 NS Inj 1,000 ML @ Wide Open IV. 0 / 0 SIG BOLUS ONE Rx#:[id number] Oral 480 / 480 480 / 480 Anesthesia Amount 1000 / 1000 Output: Estimated Blood Loss 25 / 25 Other: # Voids 2 3 Date of Last Bowel Movement 03/04/18 03/04/18 03/04/18 # Bowel Movements 0 Weight On Admission 74.642 kg Narrative: Right upper extremity: Clean dry dressings intact. Intact sensation over the radial ulnar median nerve distributions with good capillary refills. She is able to fully extend her fingers and make a fist. Right hemipelvis tenderness over pubic rami. Pain with active leg lift. She continues to have pain over the knee. Mild swelling and no active bruising. Distally intact sensation with active dorsiflexion plantar flexion of foot Results - Labs CBC & Chem 7: 03/05/18 09:09 03/05/18 09:09 Laboratory Results - last 24 hr 03/05/18 03/05/18 03/05/18 07:48 09:09 09:09 WBC 8.3 RBC 3.13 L Hgb 9.9 L Hct 29.7 L MCV 94.9 MCH 31.6 MCHC 33.3 RDW 15.9 Plt Count 197 MPV 7.2 Neut % (Auto) 70.9 H Lymph % (Auto) 17.3 [place] % (Auto) 8.9 H Eos % (Auto) 2.5 Baso % (Auto) 0.4 Neut # (Auto) 5.9 Lymph # (Auto) 1.4 [place] # (Auto) 0.7 Eos # (Auto) 0.2 Baso # (Auto) 0.0 WBC Differential . Differential Comment Auto diff final PT INR APTT Sodium 141 Potassium 3.7 D Chloride 106 Carbon Dioxide 25.6 Anion Gap 9 BUN 14 Creatinine 0.87 Estimated GFR 64 L POC Glucose 139 H Random Glucose 153 H D Calcium 8.6 03/05/18 03/05/18 03/05/18 11:16 13:16 17:10 WBC RBC Hgb Hct MCV MCH MCHC RDW Plt Count MPV Neut % (Auto) Lymph % (Auto) [place] % (Auto) Eos % (Auto) Baso % (Auto) Neut # (Auto) Lymph # (Auto) [place] # (Auto) Eos # (Auto) Baso # (Auto) WBC Differential Differential Comment PT 10.6 INR 1.0 APTT 24.4 Sodium Potassium Chloride Carbon Dioxide Anion Gap BUN Creatinine Estimated GFR POC Glucose 175 H 337 H Random Glucose Calcium 03/05/18 03/06/18 20:59 04:12 WBC RBC Hgb Hct MCV MCH MCHC RDW Plt Count MPV Neut % (Auto) Lymph % (Auto) [place] % (Auto) Eos % (Auto) Baso % (Auto) Neut # (Auto) Lymph # (Auto) [place] # (Auto) Eos # (Auto) Baso # (Auto) WBC Differential Differential Comment PT INR APTT Sodium Potassium Chloride Carbon Dioxide Anion Gap BUN Creatinine Estimated GFR POC Glucose 410 H 289 H Random Glucose Calcium - Imaging Impressions Knee X-Ray 03/05/18 00:00 CONCLUSION: Slight osteopenia. Wrist X-Ray 03/05/18 00:00 CONCLUSION: Intact postsurgical changes for technique. Assessment and Plan - Problem List (1) Closed fracture of right wrist Code(s): S62.101A - Fracture of unspecified carpal bone, right wrist, initial encounter for closed fracture Status: Acute Qualifiers: Encounter type: initial encounter Qualified Code(s): S62.101A - Fracture of unspecified carpal bone, right wrist, initial encounter for closed fracture (2) Closed fracture of right inferior pubic ramus Code(s): S32.591A - Other specified fracture of right pubis, initial encounter for closed fracture Status: Acute Qualifiers: Encounter type: initial encounter Qualified Code(s): S32.591A - Other specified fracture of right pubis, initial encounter for closed fracture - Assessment and Plan 1) Right Distal Radius Fx POD 1 ORIF Nonweightbearing right wrist. May use platform walker Maintain splint 2) Right Inferior Rami fx Nonoperative treatment weightbearing as tolerated 3) left knee pain X-rays negative for fracture Patient will need to follow-up with an orthopedic surgeon in [place] in 2 weeks for follow-up of fracture Calcium and vitamin D supplementation
[2018-03-06] MEDS: dilTIAZem CD 120 MG Capsule PO SCH (08:34)
[2018-03-06] MEDS: Isosorbide Mononitrate 30 MG ER 24HR Tablet (Imdur) PO SCH (08:35)
[2018-03-06] MEDS: Furosemide 80 MG Tablet PO SCH ×2 (08:35→22:08)
[2018-03-06] MEDS: Senna/Docusate Sodium 8.6/50 MG Tablet PO SCH ×2 (08:38→22:09)
[2018-03-06] MEDS: Budesonide-Formoterol 160/4.5 MCG 6 GM Inhaler INH SCH ×2 (08:39→22:27)
[2018-03-06] MEDS: Morphine Inj 4 MG/ML Vial IV.PUSH PRN ×2 (09:54→18:40)
--- NOTE | 2018-03-06 10:31 | P.PN ---
Subjective Interval history: Follow-up visit for right wrist fracture, pubic rami fracture, DM, HTN and left knee pain. Patient is seen and examined sitting up in a chair this morning, continues to complain of left knee pain. She reports that moving his knee is exquisitely painful as well as getting up and bearing weight. She denies any fevers, chills, nausea, vomiting, diarrhea, cough, shortness of breath or chest pain. Physical Exam Vital signs: Vital Signs 03/05/18 11:05 03/05/18 11:20 03/05/18 11:39 Temperature 98.0 F Pulse Rate 73 74 74 Respiratory Rate Blood Pressure 158/69 H 164/70 H 162/72 H Pulse Oximetry 100 96 94 L 03/05/18 12:00 03/05/18 16:00 03/05/18 19:32 Temperature 98.1 F 98.4 F Pulse Rate 78 75 Respiratory Rate 18 18 18 Blood Pressure 172/72 H 174/79 H Pulse Oximetry 95 99 03/05/18 20:00 03/06/18 00:00 03/06/18 00:10 Temperature 98.5 F 97.9 F Pulse Rate 87 80 79 Respiratory Rate 17 17 Blood Pressure 184/75 H 144/67 H Pulse Oximetry 97 94 L 03/06/18 04:00 03/06/18 08:00 03/06/18 09:55 Temperature 98.3 F 98.5 F Pulse Rate 92 H 88 82 Respiratory Rate 17 18 18 Blood Pressure 156/81 H 171/73 H 144/65 H Pulse Oximetry 97 97 Intake & Output 03/05/18 03/06/18 03/06/18 18:59 06:59 18:59 Intake Total 1480 / 1480 480 / 480 Output Total Balance 1455 / 1455 480 / 480 Intake: Oral 480 / 480 480 / 480 Anesthesia Amount 1000 / 1000 Output: Estimated Blood Loss Other: # Voids 3 Date of Last Bowel Movement 03/04/18 03/04/18 # Bowel Movements 0 Narrative: General: Well-developed, well-nourished female sitting in chair. Head: Normocephalic. Atraumatic. EENT: Pupils equal round and reactive to light. Nose without drainage. Airway intact. Cardiovascular: Regular rate and rhythm. No murmurs, rubs or gallops. Respiratory: Lungs clear to auscultation bilaterally. No wheezes or rhonchi. Abdomen: Soft, nontender, nondistended. Positive bowel sounds. Musculoskeletal: Right wrist splinted and forearm wrapped. Able to move all 5 fingers, normal sensation, capillary refill less than 3 seconds. Left knee decreased range of motion, edema noted, no warmth or erythema. Left knee with lateral ? Edema noted, nontender, limited range of motion secondary to pain. No erythema or warmth at knee joint. Skin: No obvious rashes or erythema. Neuro: Sensory and motor grossly intact. Cranial nerves II through XII grossly intact. Results - Labs CBC & Chem 7: 03/05/18 09:09 03/05/18 09:09 Laboratory Results - last 24 hr 03/05/18 03/05/18 03/05/18 11:16 13:16 17:10 PT 10.6 INR 1.0 APTT 24.4 POC Glucose 175 H 337 H 03/05/18 03/06/18 03/06/18 20:59 04:12 08:37 PT INR APTT POC Glucose 410 H 289 H 338 H - Imaging Impressions Knee X-Ray 03/05/18 00:00 CONCLUSION: Slight osteopenia. Wrist X-Ray 03/05/18 00:00 CONCLUSION: Intact postsurgical changes for technique. Assessment and Plan - Plan Right wrist fracture -Right wrist x-ray significant for comminuted and angulated distal radial fracture -Orthopedic surgery consulted, appreciate recommendations - s/p open reduction internal fixation of right distal radius 03/[address] Eric -Control with p.o. Elizabeth and IV morphine. -Or so okay with patient using platform walker, nonweightbearing to right wrist Pubic rami fracture -Nonoperable - Physical therapy consulted, appreciate assistance Diabetes mellitus -Diabetic diet -Sliding-scale insulin, blood sugars on the high side, resume patient's 7030 at 20 units twice daily -Continue to monitor blood glucose Hypertension/hyperlipidemia -Continue home medications -BP mildly elevated this morning, secondary to pain, recheck BP improved, continue current medications. Coronary artery disease Patient is status post stent placement and CABG 4 Reports she is on Xarelto for her stents, will verify if okay to resume Xarelto with orthopedic 6. AK I, resolved Creatinine 1.23, baseline unknown s/p IV hydration, and improved to 0.87, BUN 14, GFR 64 Monitor renal function Left knee pain/edema -Knee x-ray with slight osteopenia -Patient denies any history of gout, pain control with Elizabeth, ice pack, PT -Check knee CT scan DVT prophylaxis-SCDs, check with Ortho Evra to resume Xarelto Discussed Condition With: Patient will likely be discharged home, platform walker ordered, continues to complain of left knee pain.
[2018-03-06] MEDS: Rivaroxaban 15 MG Tablet PO SCH (22:08)
[2018-03-06] MEDS: Insulin Aspart Prot 70/30 1,000 UNITS/10 ML Vial SQ SCH (22:21)
[2018-03-07] MEDS: Insulin NovoLOG Aspart Correctional Sugar Inj SQ SCH ×5 (02:58→21:27)
[2018-03-07] MEDS: Sod Chloride 0.9% Inj 1,000 ML IV.CONT SCH ×2 (03:19→10:00)
--- NOTE | 2018-03-07 06:36 | P.PNOP ---
Subjective Interval history: POD 2 s/p ORIF right wrist s/p right rami fx doing well. pain controlled. no new complaints Physical Exam Vital signs: Vital Signs 03/06/18 08:00 03/06/18 09:55 03/06/18 12:00 Temperature 98.5 F 98.2 F Pulse Rate 78 82 89 Respiratory Rate 18 18 17 Blood Pressure 171/73 H 144/65 H 156/71 H Pulse Oximetry 97 100 03/06/18 16:00 03/06/18 18:39 03/06/18 20:00 Temperature 97.7 F 98.0 F Pulse Rate 87 85 83 Respiratory Rate 18 17 Blood Pressure 135/61 138/62 125/55 L Pulse Oximetry 98 98 03/07/18 00:00 03/07/18 02:00 Temperature 97.7 F Pulse Rate 73 Respiratory Rate 17 15 Blood Pressure 149/66 H Pulse Oximetry 99 Intake & Output 03/06/18 03/06/18 03/07/18 06:59 18:59 06:59 Intake Total 480 / 480 800 / 800 Balance 480 / 480 800 / 800 Intake: Oral 480 / 480 800 / 800 Other: # Voids 2 Date of Last Bowel Movement 03/04/18 03/04/18 03/04/18 Narrative: RUE: +short arm splint. intact. NVI RLE: good motion of hip. minimal discomfort. NVI Results - Labs CBC & Chem 7: 03/05/18 09:09 03/05/18 09:09 Laboratory Results - last 24 hr 03/06/18 03/06/18 03/06/18 08:37 11:25 17:53 POC Glucose 338 H 343 H 480 H* 03/06/18 03/07/18 22:14 02:53 POC Glucose 388 H 196 H Assessment and Plan - Problem List (1) Closed fracture of right wrist Code(s): S62.101A - Fracture of unspecified carpal bone, right wrist, initial encounter for closed fracture Status: Acute Qualifiers: Encounter type: initial encounter Qualified Code(s): S62.101A - Fracture of unspecified carpal bone, right wrist, initial encounter for closed fracture (2) Closed fracture of right inferior pubic ramus Code(s): S32.591A - Other specified fracture of right pubis, initial encounter for closed fracture Status: Acute Qualifiers: Encounter type: initial encounter Qualified Code(s): S32.591A - Other specified fracture of right pubis, initial encounter for closed fracture - Assessment and Plan 1) Right Distal Radius Fx POD 2 ORIF Nonweightbearing right wrist. May use platform walker Maintain splint 2) Right Inferior Rami fx Nonoperative treatment weightbearing as tolerated 3) left knee pain X-rays negative for fracture Patient will need to follow-up with an orthopedic surgeon in [place] in 2 weeks for follow-up of fracture Calcium and vitamin D supplementation ortho cleared for discharge [facility] Prescription Drug Monitoring Database has been queried and verified prior to prescribing the controlled substance. Acute pain exception. This patient has normal, predicted, physiological, and time limited response to an adverse mechanical stimulus associated with surgery, trauma, or acute illness as described in my notes. There is a lack of alternative treatment options other than to include the prescribed narcotic treatment for this condition.
[2018-03-07] MEDS: Furosemide 80 MG Tablet PO SCH ×2 (08:07→21:13)
[2018-03-07] MEDS: Senna/Docusate Sodium 8.6/50 MG Tablet PO SCH ×2 (08:07→21:13)
[2018-03-07] MEDS: Isosorbide Mononitrate 30 MG ER 24HR Tablet (Imdur) PO SCH (08:07)
[2018-03-07] MEDS: dilTIAZem CD 120 MG Capsule PO SCH (08:08)
[2018-03-07] MEDS: Rivaroxaban 15 MG Tablet PO SCH ×2 (08:08→21:14)
--- NOTE | 2018-03-07 08:58 | CT ---
EXAM DATE: 03/07/2018 8:48 AM EDT AGE/SEX: 72 years / Female INDICATIONS: Pain and swelling on lateral side of left knee. CLINICAL DATA: This is the patient's initial encounter. Patient reports that signs and symptoms have been present for 2 days and indicates a pain score of 5/10. MEDICAL/SURGICAL HISTORY: Diabetes. Coronary artery disease. Hysterectomy. RADIATION DOSE: 7.88 CTDI (mGy) COMPARISON: C, KNEE COMPLETE LEFT 4V, 03/05/2018. . TECHNIQUE: Multiple contiguous axial images were acquired using a multirow detector CT scanner witho ut contrast. Multiplanar reconstruction was performed in the sagittal and coronal planes. Using aut omated exposure control and adjustment of the mA and/or kV according to patient size, radiation dose was kept as low as reasonably achievable to obtain optimal diagnostic quality images. DICOM format i mage data is available electronically for review and comparison. FINDINGS: There is mild arthritic change of the knee. No evidence of fracture or destructive process. Minimal j oint fluid. No evidence of periarticular mass or collection. Possible mild superficial subcutaneous t issue edema/cellulitis posterolaterally. Prominent atherosclerotic vascular disease. Previous rodding of the femur. CONCLUSION: No acute bony findings. Electronically signed by: Wolf Olivares MD 03/07/2018 8:56 AM EDT
[2018-03-07] MEDS: Insulin Aspart Prot 70/30 1,000 UNITS/10 ML Vial SQ SCH ×2 (09:34→21:26)
[2018-03-07] MEDS: Budesonide-Formoterol 160/4.5 MCG 6 GM Inhaler INH SCH ×2 (09:35→21:14)
--- NOTE | 2018-03-07 12:35 | P.PN ---
Subjective Interval history: Follow-up visit for right wrist fracture, pubic rami fracture, DM, HTN and left knee pain. Patient is seen and examined sitting up in chair, appears to be in no acute distress. She continues to complain of some left knee tenderness however not as bad as previously. Physical therapist at bedside report patient still requiring maximum assist with 2 people. Patient denies any fevers, chills , nausea, vomiting, diarrhea, cough, shortness of breath or chest pain. Discussed the fact that she may not be able to go home due to the fact that she requires so much assistance just to get out of bed. Discussed rehab, patient is agreeable. Physical Exam Vital signs: Vital Signs 03/06/18 16:00 03/06/18 18:39 03/06/18 20:00 Temperature 97.7 F 98.0 F Pulse Rate 87 85 83 Respiratory Rate 18 17 Blood Pressure 135/61 138/62 125/55 L Pulse Oximetry 98 98 03/07/18 00:00 03/07/18 02:00 03/07/18 04:00 Temperature 97.7 F 97.8 F Pulse Rate 73 78 Respiratory Rate 17 15 17 Blood Pressure 149/66 H 144/64 H Pulse Oximetry 99 94 L 03/07/18 08:00 Temperature 98.6 F Pulse Rate 84 Respiratory Rate 18 Blood Pressure 160/61 H Pulse Oximetry 97 Intake & Output 03/06/18 03/07/18 03/07/18 18:59 06:59 18:59 Intake Total 800 / 800 Balance 800 / 800 Intake: Oral 800 / 800 Other: # Voids 2 Date of Last Bowel Movement 03/04/18 03/04/18 Narrative: General: Well-developed, well-nourished female sitting up in bed, right arm in sling. Head: Normocephalic. Atraumatic. EENT: Pupils equal round and reactive to light. Nose without drainage. Airway intact. Cardiovascular: Regular rate and rhythm. No murmurs, rubs or gallops. Respiratory: Lungs clear to auscultation bilaterally. No wheezes or rhonchi. Abdomen: Soft, nontender, nondistended. Positive bowel sounds. Musculoskeletal: Right wrist splinted and forearm wrapped. Able to move all 5 fingers, normal sensation, capillary refill less than 3 seconds. Left knee decreased range of motion, edema noted, no warmth or erythema. Skin: No obvious rashes or erythema. Neuro: Sensory and motor grossly intact. Cranial nerves II through XII grossly intact. Results - Labs CBC & Chem 7: 03/05/18 09:09 03/05/18 09:09 Laboratory Results - last 24 hr 03/06/18 03/06/18 03/07/18 17:53 22:14 02:53 POC Glucose 480 H* 388 H 196 H 03/07/18 03/07/18 08:04 12:07 POC Glucose 297 H 378 H - Imaging Impressions Knee CT 03/07/18 00:00 CONCLUSION: No acute bony findings. Assessment and Plan - Plan Right wrist fracture -Right wrist x-ray significant for comminuted and angulated distal radial fracture -Orthopedic surgery consulted, appreciate recommendations - s/p open reduction internal fixation of right distal radius 03/[address] Eric -Control with p.o. Ledbetter and IV morphine. - platform walker, nonweightbearing to right wrist Pubic rami fracture -Nonoperable - Physical therapy consulted, appreciate assistance Diabetes mellitus -Diabetic diet -NovoLog 70/30 at 20 units BID along with insulin sliding scale, blood sugar still remained elevated. -Increase NovoLog dose to 23 units BID -Continue to monitor blood glucose Hypertension/hyperlipidemia -Continue home medications -BP mildly elevated this morning, secondary to pain, recheck BP improved, continue current medications. Coronary artery disease Patient is status post stent placement and CABG 4 Reports she is on Xarelto for her stents, Xarelto resumed 6. AK I, resolved Creatinine 1.23, baseline unknown s/p IV hydration, and improved to 0.87, BUN 14, GFR 64 Monitor renal function as needed Left knee pain/edema -Knee x-ray with slight osteopenia -Patient denies any history of gout, pain control with Ledbetter, ice pack, PT -Left knee CT scan negative, arthritis noted. DVT prophylaxis- Xarelto Discussed Condition With: Patient, vice president compliance Planning: Case management arranging discharge to [facility] [place].
[2018-03-08] MEDS: Insulin NovoLOG Aspart Correctional Sugar Inj SQ SCH ×5 (03:43→20:58)
[2018-03-08] MEDS: Sod Chloride 0.9% Inj 1,000 ML IV.CONT SCH ×3 (03:46→16:00)
--- NOTE | 2018-03-08 06:57 | P.PNOP ---
Subjective Interval history: Pain is controlled. No new complaints Physical Exam Vital signs: Vital Signs 03/07/18 08:00 03/07/18 12:00 03/07/18 16:00 Temperature 98.6 F 98.7 F 98 F Pulse Rate 84 89 80 Respiratory Rate 18 18 18 Blood Pressure 160/61 H 130/62 147/67 H Pulse Oximetry 97 98 96 03/07/18 20:00 03/08/18 00:00 03/08/18 01:30 Temperature 99 F 98.5 F Pulse Rate 93 H 79 Respiratory Rate 18 18 17 Blood Pressure 149/63 H 154/65 H Pulse Oximetry 98 98 03/08/18 04:00 Temperature 98.6 F Pulse Rate 79 Respiratory Rate 18 Blood Pressure 161/70 H Pulse Oximetry 98 Intake & Output 03/07/18 03/07/18 03/08/18 06:59 18:59 06:59 Weight 76.3 kg Other: # Voids 2 Date of Last Bowel Movement 03/04/18 03/04/18 Narrative: Right upper extremity: Clean dry dressings intact. Intact sensation over the radial ulnar median nerve distributions with good capillary refills. She is able to fully extend her fingers and make a fist. Right hemipelvis tenderness over pubic rami. Pain with active leg lift. She continues to have mild pain over the left knee. Mild swelling and no active bruising. Intact distal pulses with good capillary refills Results - Labs CBC & Chem 7: 03/05/18 09:09 03/05/18 09:09 Laboratory Results - last 24 hr 03/07/18 03/07/18 03/07/18 08:04 12:07 18:10 POC Glucose 297 H 378 H 352 H 03/07/18 03/08/18 21:19 03:36 POC Glucose 384 H 215 H - Imaging Impressions Knee CT 03/07/18 00:00 CONCLUSION: No acute bony findings. Assessment and Plan - Problem List (1) Closed fracture of right wrist Code(s): S62.101A - Fracture of unspecified carpal bone, right wrist, initial encounter for closed fracture Status: Acute Qualifiers: Encounter type: initial encounter Qualified Code(s): S62.101A - Fracture of unspecified carpal bone, right wrist, initial encounter for closed fracture (2) Closed fracture of right inferior pubic ramus Code(s): S32.591A - Other specified fracture of right pubis, initial encounter for closed fracture Status: Acute Qualifiers: Encounter type: initial encounter Qualified Code(s): S32.591A - Other specified fracture of right pubis, initial encounter for closed fracture - Assessment and Plan 1) Right Distal Radius Fx POD 3 ORIF Nonweightbearing right wrist. May use platform walker Maintain splint 2) Right Inferior Rami fx Nonoperative treatment weightbearing as tolerated 3) left knee pain X-rays negative for fracture Patient will need to follow-up with an orthopedic surgeon in [place] in 2 weeks for follow-up of fracture Calcium and vitamin D supplementation ortho cleared for discharge [facility] [employer] Prescription Drug Monitoring Database has been queried and verified prior to prescribing the controlled substance. Acute pain exception. This patient has normal, predicted, physiological, and time limited response to an adverse mechanical stimulus associated with surgery, trauma, or acute illness as described in my notes. There is a lack of alternative treatment options other than to include the prescribed narcotic treatment for this condition.
[2018-03-08] MEDS: Senna/Docusate Sodium 8.6/50 MG Tablet PO SCH ×2 (09:15→20:59)
[2018-03-08] MEDS: Rivaroxaban 15 MG Tablet PO SCH ×2 (09:15→20:57)
[2018-03-08] MEDS: Furosemide 80 MG Tablet PO SCH ×2 (09:15→20:58)
[2018-03-08] MEDS: Isosorbide Mononitrate 30 MG ER 24HR Tablet (Imdur) PO SCH (09:15)
[2018-03-08] MEDS: dilTIAZem CD 120 MG Capsule PO SCH (09:15)
[2018-03-08] MEDS: Budesonide-Formoterol 160/4.5 MCG 6 GM Inhaler INH SCH ×2 (09:23→20:59)
[2018-03-08] MEDS: Insulin Aspart Prot 70/30 1,000 UNITS/10 ML Vial SQ SCH ×2 (09:23→20:59)
--- NOTE | 2018-03-08 10:31 | P.DS ---
Date of admission: 03/04/18 21:24 Primary care physician: UNKNOWN Attending physician on discharge: Thierno Huff Anticipated date of discharge: 03/08/18 Brief History from admission: 72-year-old female with past medical history significant for diabetes mellitus, coronary artery disease status post stent placement and CABG 4, hypertension and hyperlipidemia presents the emergency department for the evaluation of a fall. The patient reports that she slipped in some water and fell onto the ground. She reports pain in her right wrist and in her pelvis. She denies any head trauma or loss of stenosis. No abdominal pain. No nausea/vomiting/ diarrhea. No chest pain or shortness of breath. No fever/chills. DS: Medications - Discharge Medications Prescriptions: hydrocodone-acetaminophen [[place]] 1 tab PO Q4H #40 tab insulin asp prt-insulin aspart [Novolog Mix 70-30 U-100 Insuln] 23 units SUB-Q BID #7 vial insulin aspart U-100 [Novolog U-100 Insulin aspart] 0 unit SUB-Q ACHS AND 3AM # 1 vial DS: Summary Hospital Course: 72-year-old female visiting from [place] with past medical history significant for DM, CAD with stenting, HTN, and H LD who presented to the emergency department on 03/04 after sustaining a fall when she slipped on water. Patient was found to have a right wrist fracture and underwent ORIF of the distal radius on 03/[address] Anguiano. Patient also had a pubic rami fracture which was nonoperable with recommendations for physical therapy. Following surgery patient also complained of left knee pain and edema, x-ray of left knee was negative, CT of left knee was done which showed arthritis. Patient was also treated for acute kidney injury with IV hydration and improvement in renal function. Patient was followed by physical therapy who recommended continued physical therapy and rehab. She was cleared by orthopedic services and has been medically stable. Patient is now ready to continue physical therapy at rehab. This morning patient is seen and examined resting in bed, appears to be in no acute distress. She denies any fevers, chills, nausea, vomiting, diarrhea, cough, shortness of breath or chest pain. Patient reports that left knee pain is improved. Is agreeable with discharge to rehab. - Time Spent with Patient Total time spent providing and/or coordinating discharge services: Less than 30 minutes - Quality: VTE Deep Vein Thrombosis/Pulmonary Embolism Present on Admission: No Exam Vital signs: Vital Signs 03/07/18 12:00 03/07/18 16:00 03/07/18 20:00 Temperature 98.7 F 98 F 99 F Pulse Rate 89 80 93 H Respiratory Rate 18 18 18 Blood Pressure 130/62 147/67 H 149/63 H Pulse Oximetry 98 96 98 03/08/18 00:00 03/08/18 01:30 03/08/18 04:00 Temperature 98.5 F 98.6 F Pulse Rate 79 79 Respiratory Rate 18 18 Blood Pressure 154/65 H 161/70 H Pulse Oximetry 98 98 Intake & Output 03/07/18 03/08/18 03/08/18 18:59 06:59 18:59 Weight 76.3 kg Other: # Voids 2 Date of Last Bowel Movement 03/04/18 Narrative: General: Well-developed, well-nourished female sitting up in bed, right arm in sling. Head: Normocephalic. Atraumatic. EENT: Pupils equal round and reactive to light. Nose without drainage. Airway intact. Cardiovascular: Regular rate and rhythm. No murmurs, rubs or gallops. Respiratory: Lungs clear to auscultation bilaterally. No wheezes or rhonchi. Abdomen: Soft, nontender, nondistended. Positive bowel sounds. Musculoskeletal: Right wrist splinted and forearm wrapped. Able to move all 5 fingers, normal sensation, capillary refill less than 3 seconds. Left knee with no edema, warmth, erythema noted. Skin: No obvious rashes or erythema. Neuro: Sensory and motor grossly intact. Cranial nerves II through XII grossly intact. Results Procedures completed during hospitalization: s/p open reduction internal fixation of right distal radius 03/[address] Anguiano Labs on day of discharge: Labs from last 24 hours 03/08/18 03/08/18 03/07/18 08:33 03:36 21:19 POC Glucose 281 H 215 H 384 H 03/07/18 03/07/18 18:10 12:07 POC Glucose 352 H 378 H - Impressions ITS Impressions Elbow X-Ray 03/04/18 00:00 CONCLUSION: No evidence of recent bony injury. Hip X-Ray 03/04/18 17:41 CONCLUSION: No evidence of recent bony injury. Hip CT 03/04/18 18:43 CONCLUSION: 1. Buckle, 1 cortex fracture of the right inferior pubic ramus. 2. No evidence of fracture in the right hip or right femoral neck. Knee X-Ray 03/05/18 00:00 CONCLUSION: Slight osteopenia. Wrist X-Ray 03/05/18 00:00 CONCLUSION: Intact postsurgical changes for technique. Knee CT 03/07/18 00:00 CONCLUSION: No acute bony findings. Discharge Plan - Discharge Disposition Patient Disposition: 62 Rehab Inpatient - Discharge Condition Condition: Good - Discharge Order Discharge Orders: Discharge Order (Routine); Ordered 03/05/18 Ordered By: [place] Anguiano Orthopedic Clear for Discharge (Routine); Ordered 03/08/18 Ordered By: Hemant Loomis - Physicians Team Primary Care Provider: UNKNOWN, Attending Provider: Thierno Huff Other Providers: [employer],Insurance ; Los Anguiano MD
[2018-03-08] MEDS: Acetaminophen 325 MG Tablet PO PRN (19:36)
[2018-03-09] MEDS: Insulin NovoLOG Aspart Correctional Sugar Inj SQ SCH ×6 (01:16→20:40)
[2018-03-09] MEDS: Sod Chloride 0.9% Inj 1,000 ML IV.CONT SCH ×2 (03:06→15:18)
[2018-03-09] MEDS: Furosemide 80 MG Tablet PO SCH ×2 (09:08→20:40)
[2018-03-09] MEDS: Isosorbide Mononitrate 30 MG ER 24HR Tablet (Imdur) PO SCH (09:08)
[2018-03-09] MEDS: Rivaroxaban 15 MG Tablet PO SCH ×2 (09:08→20:40)
[2018-03-09] MEDS: dilTIAZem CD 120 MG Capsule PO SCH (09:08)
[2018-03-09] MEDS: Budesonide-Formoterol 160/4.5 MCG 6 GM Inhaler INH SCH ×2 (09:09→20:39)
[2018-03-09] MEDS: Senna/Docusate Sodium 8.6/50 MG Tablet PO SCH ×2 (09:09→20:43)
[2018-03-09] MEDS: Insulin Aspart Prot 70/30 1,000 UNITS/10 ML Vial SQ SCH ×2 (09:09→20:42)
--- NOTE | 2018-03-09 09:50 | P.PN ---
Subjective Interval history: Follow-up visit for right wrist fracture, pubic rami fracture, DM, HTN and left knee pain. Patient is seen and examined this morning eating breakfast, requesting orange juice. She denies any fevers, chills, nausea, vomiting, diarrhea, cough, shortness of breath or chest pain. Discussed with patient still awaiting approval from insurance for rehab placement. Physical Exam Vital signs: Vital Signs 03/08/18 12:00 03/08/18 20:00 03/09/18 00:00 Temperature 98 F 97.7 F 97.7 F Pulse Rate 88 85 85 Respiratory Rate 18 18 16 Blood Pressure 170/70 H 154/69 H 142/65 H Pulse Oximetry 97 100 100 03/09/18 04:00 03/09/18 08:00 Temperature 98.2 F 98 F Pulse Rate 84 79 Respiratory Rate 18 16 Blood Pressure 148/67 H 166/74 H Pulse Oximetry 99 100 Intake & Output 03/08/18 03/09/18 03/09/18 18:59 06:59 18:59 Intake Total 240 / 240 Balance 240 / 240 Weight 77.2 kg Intake: Oral 240 / 240 Other: # Voids 2 Date of Last Bowel Movement 03/09/18 # Bowel Movements 1 Narrative: General: Well-developed, well-nourished female sitting up in bed, right arm in sling. Head: Normocephalic. Atraumatic. EENT: Pupils equal round and reactive to light. Nose without drainage. Airway intact. Cardiovascular: Regular rate and rhythm. No murmurs, rubs or gallops. Respiratory: Lungs clear to auscultation bilaterally. No wheezes or rhonchi. Abdomen: Soft, nontender, nondistended. Positive bowel sounds. Musculoskeletal: Right wrist splinted and forearm wrapped. Able to move all 5 fingers, normal sensation, capillary refill less than 3 seconds. Left knee decreased range of motion, edema noted, no warmth or erythema. Skin: No obvious rashes or erythema. Neuro: Sensory and motor grossly intact. Cranial nerves II through XII grossly intact. Results - Labs CBC & Chem 7: 03/05/18 09:09 03/05/18 09:09 Laboratory Results - last 24 hr 03/08/18 03/08/18 03/08/18 11:52 17:26 20:48 POC Glucose 478 H* 488 H* Greater than 600 H* 03/08/18 03/08/18 03/09/18 20:49 22:24 00:37 POC Glucose 588 H* 497 H* 352 H 03/09/18 03/09/18 03:54 08:11 POC Glucose 147 H 214 H Assessment and Plan - Plan Right wrist fracture -Right wrist x-ray significant for comminuted and angulated distal radial fracture -Orthopedic surgery consulted, appreciate recommendations - s/p open reduction internal fixation of right distal radius 03/[address] Eric -Control with p.o. [place] and IV morphine. - platform walker, nonweightbearing to right wrist Pubic rami fracture -Nonoperable - Physical therapy consulted, appreciate assistance Diabetes mellitus -Diabetic diet, blood sugar last night greater than 600 -Increase NovoLog 70/30 to 30 units BID along with insulin sliding scale. -Continue to monitor blood glucose Hypertension/hyperlipidemia -Continue home medications -BP moderately controlled. Coronary artery disease Patient is status post stent placement and CABG 4 Reports she is on Xarelto for her stents, Xarelto resumed 6. AK I, resolved Creatinine 1.23, baseline unknown s/p IV hydration, and improved to 0.87, BUN 14, GFR 64 Monitor renal function as needed Left knee pain/edema -Knee x-ray with slight osteopenia -Patient denies any history of gout, pain control with [place], ice pack, PT -Left knee CT scan negative, arthritis noted. 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
[2018-03-09] MEDS ORDERED: Insulin Aspart Prot 70/30 1,000 UNITS/10 ML Vial SQ SCH (21:00)
[2018-03-09] MEDS ORDERED: TRULICITY SQ SCH (21:00)
[2018-03-10] MEDS: Sod Chloride 0.9% Inj 1,000 ML IV.CONT SCH ×3 (00:34→17:13)
[2018-03-10] MEDS: Insulin NovoLOG Aspart Correctional Sugar Inj SQ SCH ×5 (04:29→20:22)
[2018-03-10 08:16] LABS: Calcium 9.2 mg/dL (8.5-10.1); Carbon Dioxide 30.4 meq/L (21.0-32.0); Potassium 3.6 meq/L (3.5-5.1)
--- NOTE | 2018-03-10 10:52 | P.PN ---
Subjective Interval history: Follow-up visit for right wrist fracture, pubic rami fracture, DM, HTN and left knee pain. Patient is seen and examined resting in bed in no acute distress. Discussed changes in insulin and resuming patient's [facility] for glycemic control. Pending insurance appeal, [facility]. Patient denies any fevers, chills, nausea, vomiting, diarrhea, cough, shortness of breath or chest pain. She voices no acute concerns or complaints at this moment. Physical Exam Vital signs: Vital Signs 03/09/18 12:00 03/09/18 16:00 03/09/18 20:00 Temperature 97.2 F L 97.6 F 97.3 F L Pulse Rate 85 78 73 Respiratory Rate 17 17 17 Blood Pressure 149/70 H 151/91 H 157/68 H Pulse Oximetry 100 97 100 03/10/18 00:00 03/10/18 04:00 03/10/18 08:00 Temperature 98.4 F 98.2 F 98.4 F Pulse Rate 75 76 70 Respiratory Rate 18 18 18 Blood Pressure 165/70 H 146/66 H 143/67 H Pulse Oximetry 100 100 100 Intake & Output 03/09/18 03/10/18 03/10/18 18:59 06:59 18:59 Intake Total 960 / 960 Balance 960 / 960 Weight 77 kg Intake: Oral 960 / 960 Other: # Voids 4 1 Date of Last Bowel Movement 03/09/18 03/09/18 # Bowel Movements 3 Narrative: General: Well-developed, well-nourished female sitting up in bed, right arm in sling. Head: Normocephalic. Atraumatic. EENT: Pupils equal round and reactive to light. Nose without drainage. Airway intact. Cardiovascular: Regular rate and rhythm. No murmurs, rubs or gallops. Respiratory: Lungs clear to auscultation bilaterally. No wheezes or rhonchi. Abdomen: Soft, nontender, nondistended. Positive bowel sounds. Musculoskeletal: Right wrist splinted and forearm wrapped. Able to move all 5 fingers, normal sensation, capillary refill less than 3 seconds. Left knee decreased range of motion, edema noted, no warmth or erythema. Skin: No obvious rashes or erythema. Neuro: Sensory and motor grossly intact. Cranial nerves II through XII grossly intact. Results - Labs CBC & Chem 7: 03/05/18 09:09 03/10/18 07:17 Laboratory Results - last 24 hr 03/09/18 03/09/18 03/09/18 11:50 17:49 20:26 Sodium Potassium Chloride Carbon Dioxide Anion Gap BUN Creatinine Estimated GFR POC Glucose 346 H 444 H 436 H Random Glucose Calcium 03/10/18 03/10/18 03/10/18 03:45 04:12 05:13 Sodium Potassium Chloride Carbon Dioxide Anion Gap BUN Creatinine Estimated GFR POC Glucose 76 88 171 H Random Glucose Calcium 03/10/18 07:17 Sodium 139 Potassium 3.6 Chloride 99 Carbon Dioxide 30.4 Anion Gap 10 BUN 39 H Creatinine 1.12 H Estimated GFR 48 L POC Glucose Random Glucose 180 H Calcium 9.2 Assessment and Plan - Plan Right wrist fracture -Right wrist x-ray significant for comminuted and angulated distal radial fracture -Orthopedic surgery consulted, appreciate recommendations - s/p open reduction internal fixation of right distal radius 03/[address] Eric -Control with p.o. [place] and IV morphine. - platform walker, nonweightbearing to right wrist Pubic rami fracture -Nonoperable - Physical therapy consulted, appreciate assistance Diabetes mellitus -Diabetic diet, blood sugar still elevated -Resume patient's home dose of NovoLog units twice daily, Trulicity 0.75mg weekly, accu-checks with ISS -BS impoved Hypertension/hyperlipidemia -Continue home medications -BP moderately controlled. Coronary artery disease Patient is status post stent placement and CABG 4 - Continue Xarelto 6. AK I, resolved Creatinine 1.23, baseline unknown -Creatinine 1.12, BUN 39, decrease Lasix to 40 mg twice daily Left knee pain/edema -Knee x-ray with slight osteopenia -Patient denies any history of gout, pain control with [place], ice pack, PT -Left knee CT scan negative, arthritis noted. 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
[2018-03-10] MEDS: Rivaroxaban 15 MG Tablet PO SCH ×2 (11:08→20:21)
[2018-03-10] MEDS: dilTIAZem CD 120 MG Capsule PO SCH (11:08)
[2018-03-10] MEDS: Isosorbide Mononitrate 30 MG ER 24HR Tablet (Imdur) PO SCH (11:08)
[2018-03-10] MEDS: Insulin Aspart Prot 70/30 1,000 UNITS/10 ML Vial SQ SCH ×2 (11:09→20:22)
[2018-03-10] MEDS: Senna/Docusate Sodium 8.6/50 MG Tablet PO SCH ×2 (11:09→20:21)
[2018-03-10] MEDS: Budesonide-Formoterol 160/4.5 MCG 6 GM Inhaler INH SCH ×2 (11:13→20:23)
[2018-03-10] MEDS: Acetaminophen 325 MG Tablet PO PRN ×2 (11:23→20:33)
[2018-03-10] MEDS: Furosemide 40 MG Tablet PO SCH ×2 (11:25→20:21)
[2018-03-10] MEDS: Furosemide 80 MG Tablet PO SCH (20:01)
[2018-03-11] MEDS: Insulin NovoLOG Aspart Correctional Sugar Inj SQ SCH ×4 (02:46→18:33)
[2018-03-11] MEDS: Sod Chloride 0.9% Inj 1,000 ML IV.CONT SCH ×2 (03:34→18:31)
--- NOTE | 2018-03-11 06:44 | P.PNOP ---
Subjective Interval history: Sitting at bedside commode. States that she has been progressing well with physical therapy. She ambulates with a platform walker Physical Exam Vital signs: Vital Signs 03/10/18 08:00 03/10/18 12:00 03/10/18 16:00 Temperature 98.4 F 97.9 F 98.1 F Pulse Rate 70 88 79 Respiratory Rate 18 18 18 Blood Pressure 143/67 H 146/65 H 135/63 Pulse Oximetry 100 100 97 03/10/18 17:12 03/10/18 20:00 03/11/18 00:00 Temperature 98.5 F 98.0 F Pulse Rate 82 69 Respiratory Rate 18 16 17 Blood Pressure 123/57 L 146/65 H Pulse Oximetry 98 99 03/11/18 04:00 Temperature 98.2 F Pulse Rate 105 H Respiratory Rate 17 Blood Pressure 138/97 H Pulse Oximetry 96 Intake & Output 03/10/18 03/10/18 03/11/18 06:59 18:59 06:59 Intake Total 480 / 480 Balance 480 / 480 Weight 77 kg 77 kg Intake: Oral 480 / 480 Other: # Voids 1 1 1 Date of Last Bowel Movement 03/09/18 03/09/18 03/10/18 # Bowel Movements 1 Narrative: Right upper extremity: Clean dry dressings intact. Intact sensation over the radial ulnar median nerve distributions with good capillary refills. She is able to fully extend her fingers and make a fist. Right hemipelvis tenderness over pubic rami. Pain with active leg lift. She continues to have mild pain over the left knee. Mild swelling and no active bruising. Intact distal pulses with good capillary refills Results - Labs CBC & Chem 7: 03/05/18 09:09 03/10/18 07:17 Laboratory Results - last 24 hr 03/10/18 03/10/18 03/10/18 07:17 12:42 16:50 Sodium 139 Potassium 3.6 Chloride 99 Carbon Dioxide 30.4 Anion Gap 10 BUN 39 H Creatinine 1.12 H Estimated GFR 48 L POC Glucose 268 H 178 H Random Glucose 180 H Calcium 9.2 03/10/18 03/11/18 20:11 02:35 Sodium Potassium Chloride Carbon Dioxide Anion Gap BUN Creatinine Estimated GFR POC Glucose 327 H 77 Random Glucose Calcium Assessment and Plan - Problem List (1) Closed fracture of right wrist Code(s): S62.101A - Fracture of unspecified carpal bone, right wrist, initial encounter for closed fracture Status: Acute Qualifiers: Encounter type: initial encounter Qualified Code(s): S62.101A - Fracture of unspecified carpal bone, right wrist, initial encounter for closed fracture (2) Closed fracture of right inferior pubic ramus Code(s): S32.591A - Other specified fracture of right pubis, initial encounter for closed fracture Status: Acute Qualifiers: Encounter type: initial encounter Qualified Code(s): S32.591A - Other specified fracture of right pubis, initial encounter for closed fracture - Assessment and Plan 1) Right Distal Radius Fx POD 5 ORIF Nonweightbearing right wrist. May use platform walker Maintain splint 2) Right Inferior Rami fx Nonoperative treatment weightbearing as tolerated 3) left knee pain X-rays negative for fracture Patient will need to follow-up with an orthopedic surgeon in [place] in 2 weeks for follow-up of fracture Calcium and vitamin D supplementation ortho cleared for discharge [facility] Prescription Drug Monitoring Database has been queried and verified prior to prescribing the controlled substance. Acute pain exception. This patient has normal, predicted, physiological, and time limited response to an adverse mechanical stimulus associated with surgery, trauma, or acute illness as described in my notes. There is a lack of alternative treatment options other than to include the prescribed narcotic treatment for this condition.
[2018-03-11] MEDS: dilTIAZem CD 120 MG Capsule PO SCH (09:50)
[2018-03-11] MEDS: Rivaroxaban 15 MG Tablet PO SCH ×2 (09:50→21:19)
[2018-03-11] MEDS: Isosorbide Mononitrate 30 MG ER 24HR Tablet (Imdur) PO SCH (09:50)
[2018-03-11] MEDS: Senna/Docusate Sodium 8.6/50 MG Tablet PO SCH (09:50)
[2018-03-11] MEDS: Insulin Aspart Prot 70/30 1,000 UNITS/10 ML Vial SQ SCH (09:51)
[2018-03-11] MEDS: Furosemide 40 MG Tablet PO SCH ×2 (09:51→21:20)
--- NOTE | 2018-03-11 11:35 | P.PN ---
Subjective Interval history: Follow-up visit for right wrist fracture, pubic rami fracture, DM, HTN and left knee pain. Patient is seen and evaluated sitting up in chair in no acute distress talking on the phone with daughter. She denies any fevers, chills, nausea, vomiting, diarrhea, cough, shortness of breath or chest pain. Patient has noticed that her stools are more softer than usual. We discussed discontinuing stool softener. Case management still working on assisting with placement possibly to rehab more specifically [place]. Physical Exam Vital signs: Vital Signs 03/10/18 12:00 03/10/18 16:00 03/10/18 17:12 Temperature 97.9 F 98.1 F Pulse Rate 88 79 Respiratory Rate 18 18 18 Blood Pressure 146/65 H 135/63 Pulse Oximetry 100 97 03/10/18 20:00 03/11/18 00:00 03/11/18 04:00 Temperature 98.5 F 98.0 F 98.2 F Pulse Rate 82 69 105 H Respiratory Rate 16 17 17 Blood Pressure 123/57 L 146/65 H 138/97 H Pulse Oximetry 98 99 96 03/11/18 08:00 Temperature 98.1 F Pulse Rate 84 Respiratory Rate 18 Blood Pressure 154/68 H Pulse Oximetry 100 Intake & Output 03/10/18 03/11/18 03/11/18 18:59 06:59 18:59 Intake Total 480 / 480 Balance 480 / 480 Weight 77 kg Intake: Oral 480 / 480 Other: # Voids 1 1 Date of Last Bowel Movement 03/09/18 03/10/18 03/11/18 # Bowel Movements 1 Narrative: General: Well-developed, well-nourished female sitting up in bed, right arm in sling. Head: Normocephalic. Atraumatic. EENT: Pupils equal round and reactive to light. Nose without drainage. Airway intact. Cardiovascular: Regular rate and rhythm. No murmurs, rubs or gallops. Respiratory: Lungs clear to auscultation bilaterally. No wheezes or rhonchi. Abdomen: Soft, nontender, nondistended. Positive bowel sounds. Musculoskeletal: Right wrist splinted and forearm wrapped. Able to move all 5 fingers, normal sensation, capillary refill less than 3 seconds. Left knee ROM improved, no edema, warmth or erythema. Skin: No obvious rashes or erythema. Neuro: Sensory and motor grossly intact. Cranial nerves II through XII grossly intact. Results - Labs CBC & Chem 7: 03/05/18 09:09 03/10/18 07:17 Laboratory Results - last 24 hr 03/10/18 03/10/18 03/10/18 12:42 16:50 20:11 POC Glucose 268 H 178 H 327 H 03/11/18 03/11/18 02:35 08:26 POC Glucose 77 219 H Assessment and Plan - Plan Right wrist fracture -Right wrist x-ray significant for comminuted and angulated distal radial fracture -Orthopedic surgery consulted, appreciate recommendations - s/p open reduction internal fixation of right distal radius 03/[address] Eric -Control with p.o. [place], D/C stool softener - platform walker, nonweightbearing to right wrist Pubic rami fracture -Nonoperable - Physical therapy consulted, appreciate assistance Diabetes mellitus -Diabetic diet, blood sugar still elevated -Change to NovoLog 70/30 65units in a.m. units and 60 units in HS (77 BS noted around 3am last night), continue Trulicity 0.75mg weekly, accu-checks with [facility] Hypertension/hyperlipidemia -Continue home medications -BP moderately controlled. Coronary artery disease Patient is status post stent placement and CABG 4 - Continue Xarelto 6. AK I, resolved Creatinine 1.23, baseline unknown -Creatinine 1.12, BUN 39, decrease Lasix to 40 mg twice daily Left knee pain/edema -Knee x-ray with slight osteopenia -Patient denies any history of gout, pain control with [place], ice pack, PT -Left knee CT scan negative, arthritis noted. -Pain to left knee much improved, patient able to ambulate better with physical therapy today. 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 Discharge Planning: Awaiting insurance approval for [place] discharge.
[2018-03-11] MEDS: Budesonide-Formoterol 160/4.5 MCG 6 GM Inhaler INH SCH ×2 (12:40→21:20)
[2018-03-11] MEDS ORDERED: Insulin Aspart Prot 70/30 1,000 UNITS/10 ML Vial SQ SCH (17:00)
[2018-03-12] MEDS: dilTIAZem CD 120 MG Capsule PO SCH (08:42)
[2018-03-12] MEDS: Furosemide 40 MG Tablet PO SCH (08:42)
[2018-03-12] MEDS: Rivaroxaban 15 MG Tablet PO SCH (08:42)
[2018-03-12] MEDS: Isosorbide Mononitrate 30 MG ER 24HR Tablet (Imdur) PO SCH (08:42)
[2018-03-12] MEDS: Sod Chloride 0.9% Inj 1,000 ML IV.CONT SCH ×2 (08:43→10:00)
[2018-03-12] MEDS: Insulin NovoLOG Aspart Correctional Sugar Inj SQ SCH ×4 (08:59→12:40)
[2018-03-12] MEDS: Budesonide-Formoterol 160/4.5 MCG 6 GM Inhaler INH SCH (09:31)
[2018-03-12] MEDS: Insulin Aspart Prot 70/30 1,000 UNITS/10 ML Vial SQ SCH (10:23)
--- NOTE | 2018-03-12 14:12 | P.PN ---
Subjective Interval history: Patient is seen sitting up in chair at bedside. is present. She tells me that she is doing well and pain is controlled. No chest pain or shortness of breath. No nausea vomiting or diarrhea. She is tolerating meals well. Normal urination and bowel movements. She is looking forward to going to rehab. Physical Exam Vital signs: Vital Signs 03/11/18 16:00 03/11/18 20:20 03/12/18 00:00 Temperature 98.4 F 98 F Pulse Rate 85 79 80 Respiratory Rate 18 18 Blood Pressure 117/56 L 148/68 H Pulse Oximetry 99 98 03/12/18 00:44 03/12/18 04:00 03/12/18 08:00 Temperature 98.2 F 98.3 F 97.8 F Pulse Rate 95 H 84 74 Respiratory Rate 18 18 18 Blood Pressure 122/56 L 109/58 L 150/67 H Pulse Oximetry 98 96 100 03/12/18 12:00 Temperature 98.0 F Pulse Rate 82 Respiratory Rate 18 Blood Pressure 137/63 Pulse Oximetry 98 Intake & Output 03/11/18 03/12/18 03/12/18 18:59 06:59 18:59 Intake Total 600 / 600 400 / 400 Balance 600 / 600 400 / 400 Weight 77.8 kg Intake: Oral 600 / 600 400 / 400 Other: # Voids 3 2 Date of Last Bowel Movement 03/11/18 03/11/18 03/12/18 # Bowel Movements 2 Narrative: General: Well-developed, well-nourished female sitting up in bed, right wrist wrapped. Head: Normocephalic. Atraumatic. EENT: Pupils equal round and reactive to light. Nose without drainage. Airway intact. Cardiovascular: Regular rate and rhythm. No murmurs, rubs or gallops. Respiratory: Lungs clear to auscultation bilaterally. No wheezes or rhonchi. Abdomen: Soft, nontender, nondistended. Positive bowel sounds. Musculoskeletal: Right wrist splinted and forearm wrapped. Able to move all 5 fingers, normal sensation, capillary refill less than 3 seconds. Left knee ROM improved, no edema, warmth or erythema. Skin: No obvious rashes or erythema. Neuro: Sensory and motor grossly intact. Cranial nerves II through XII grossly intact. Results - Labs CBC & Chem 7: 03/05/18 09:09 03/10/18 07:17 Laboratory Results - last 24 hr 03/11/18 03/12/18 03/12/18 16:53 00:35 05:10 POC Glucose 147 H 54 L 72 03/12/18 12:22 POC Glucose 149 H Assessment and Plan - Plan Right wrist fracture -Right wrist x-ray significant for comminuted and angulated distal radial fracture -Orthopedic surgery consulted, appreciate recommendations - s/p open reduction internal fixation of right distal radius 03/[address] Eric -Control with p.katelyn Recinos, D/C stool softener - platform walker, nonweightbearing to right wrist Pubic rami fracture -Nonoperable Diabetes mellitus -Diabetic diet, blood sugar still elevated -Change to NovoLog 70/30 65units in a.m. units and 60 units in HS (77 BS noted around 3am last night), continue Trulicity 0.75mg weekly, accu-checks with [facility] Hypertension/hyperlipidemia -Continue home medications -BP moderately controlled. Coronary artery disease Patient is status post stent placement and CABG 4 - Continue Xarelto 6. AK I, resolved Creatinine 1.23, baseline unknown -Creatinine 1.12, BUN 39, decrease Lasix to 40 mg twice daily Left knee pain/edema -Knee x-ray with slight osteopenia -Patient denies any history of gout, pain control with [place], ice pack, PT -Left knee CT scan negative, arthritis noted. -Pain to left knee much improved, patient able to ambulate better with physical therapy today. DVT prophylaxis- Xarelto Discussed Condition With: Discussed with patient, , RN. Discharge Planning: [place] today
== END 2018-03-12 13:59 ==
LOC: NEPC 17:16 → NEDA 21:24 → N06 03-05 00:52
PROVIDERS: ADMIT Hospitalist; ATTEND Hospitalist